=== PATIENT | male | born 1960 | race Caucasian/White ===

== ENCOUNTER → 2017-12-20 | Outpatient (CLI) | payer BC ==
[~2017-12-20] MED LIST: AMOX500C3 PO; ATV1HP PO; BISA-16 PO; GLIP10TA9 PO; HYDR-5688 PO; HYDR12.55 PO; HYDR25TA4 PO; IBUP-1428 PO; IBUPROFEN PO; INSDGI SC; LIRA18IN SQ; LISI-788 PO; LISI10TA PO; METF-384 PO; OMEP40CA41 PO; OXYC-609 PO; PRAV20TA PO; [UNRECOGNIZED DRUG - CODE] PO; [UNRECOGNIZED DRUG - OTHER] PO; dulcolax PO
[2017-12-20 15:19] LABS: ALBUMIN 4.3 gm/dl (3.4-5.0); ALT/SGPT 66 U/L (12-78); BLOOD UREA NITROGEN 25 mg/dl (7-18); CARBON DIOXIDE 28 mmol/L (21-32); CREATININE 1.31 mg/dl (0.60-1.40); GLUCOSE 95 mg/dl (70-99); POTASSIUM 4.7 mmol/L (3.5-5.1); SODIUM 134 mmol/L (136-145)
[2017-12-20 15:22] LABS: ALKALINE PHOSPHATASE 69 U/L (45-117); AST/SGOT 43 U/L (15-37); TOTAL PROTEIN 8.1 gm/dl (6.4-8.2)
[2017-12-21 06:47] LABS: HEMOGLOBIN A1C 6.3 % (4.5-5.6)
== END | disposition home or self-care (01) ==
LOC: C.LAB 12:47
PROVIDERS: ATTEND Family Medicine
DX: K29.70 Gastritis, unspecified, without bleeding (principal); E11.9 Type 2 diabetes mellitus without complications

== ENCOUNTER 2018-01-11 07:45 | Inpatient (IN) | payer BC, OTHER ==
[2017-12-20 13:22] VITALS: Ht 172.7 cm; Wt 105.0 kg
--- NOTE | 2017-12-20 14:04 | PAT Medication Instructions ---
Service Date Dec 20, 2017. Current Home Medication List Amoxicillin (Amoxil), 4 CAP PO QD Bisacodyl (Dulcolax), 1 TAB PO QD PRN for Constipation Glipizide (Glucotrol), 10 MG PO BID Hydrochlorothiazide (Hydrochlorothiazide), 1 TAB PO QPM Hydrocodone/Acetaminophen 5MG/325MG ([place] 5MG/325MG), 1 TABLET PO Q6 PRN for Pain Ibuprofen (Motrin), 800 MG PO TID PRN for Pain Insulin Glargine (Lantus), 30 UNITS SC QPM Liraglutide (Victoza), 1.2 MG SQ QAM Lisinopril/Hctz (Zestoretic 20MG/25MG), 1 TAB PO QAM Metformin Hcl (Glucophage), 1,000 MG PO BID Omeprazole (Prilosec), 40 MG PO QPM Medication Instructions For Your Scheduled Surgery -Continue as directed: Amoxicillin (Amoxil), 4 CAP PO QD -Contact your surgeon for instructions for: Ibuprofen (Motrin), 800 MG PO TID PRN for Pain - Hold the following medications the night before surgery: Hydrochlorothiazide (Hydrochlorothiazide), 1 TAB PO QPM - Hold the following medications the morning of surgery: Bisacodyl (Dulcolax), 1 TAB PO QD PRN for Constipation Glipizide (Glucotrol), 10 MG PO BID Lisinopril/Hctz (Zestoretic 20MG/25MG), 1 TAB PO QAM Metformin Hcl (Glucophage), 1,000 MG PO BID - Take the following medications the morning of surgery with a sip of water: Hydrocodone/Acetaminophen 5MG/325MG ([place] 5MG/325MG), 1 TABLET PO Q6 PRN for Pain (if needed, can be taken up to four hours before surgery) Liraglutide (Victoza), 1.2 MG SQ QAM (if blood sugar is greater than 150) - Take the following medications as scheduled the night before surgery: Bisacodyl (Dulcolax), 1 TAB PO QD PRN for Constipation (if needed) Glipizide (Glucotrol), 10 MG PO BID Hydrocodone/Acetaminophen 5MG/325MG ([place] 5MG/325MG), 1 TABLET PO Q6 PRN for Pain (if needed) Insulin Glargine (Lantus), 30 UNITS SC QPM Metformin Hcl (Glucophage), 1,000 MG PO BID Omeprazole (Prilosec), 40 MG PO QPM If you have any questions please call us at [phone] or [phone] or [phone]
[2017-12-20 14:36] LABS: BASO % 0.3 %; BASO ABS # 0.02 K/uL (0-0.2); EOS % 1.7 %; HEMATOCRIT 34.1 % (42-52); HEMOGLOBIN 11.9 g/dL (14.0-18.0); IG# 0.02 K/uL (0.00-0.02); LYMPH % 36.1 %; LYMPH ABS # 2.07 K/uL (1.2-3.4); MEAN CELL VOLUME 87.2 fL (80-100); MEAN CORPUSCULAR HEMOGLOBIN 30.4 pg (25-34); MEAN CORPUSCULAR HGB CONC 34.9 g/dl (32-36); MEAN PLATELET VOLUME 11.6 fL (7.4-10.4); MONO % 7.3 %; MONO ABS # 0.42 K/uL (0.11-0.59); NEUT % 54.3 %; NEUT ABS # 3.11 K/uL (1.4-6.5); PLATELET COUNT 162 K/uL (130-400); RED CELL DISTRIBUTION WIDTH CV 13.3 % (11.5-14.5); RED CELL DISTRIBUTION WIDTH SD 42.7 fL (36.4-46.3); WHITE BLOOD COUNT 5.74 K/uL (4.8-10.8)
--- NOTE | 2017-12-20 14:41 | DIAGNOSTIC IMAGING REPORT ---
CHEST 2 VIEWS ROUTINE CLINICAL HISTORY: Preoperative chest COMPARISON STUDY: September 30, 2013 FINDINGS: The cardiac and mediastinal contours are normal. There is no evidence of focal pulmonary consolidation. There is no evidence of failure. No pleural effusions are visualized.[ IMPRESSION: No active disease in the chest. Electronically signed by: Colin Cool M.D. 12/20/2017 2:40 PM Dictated Date/Time: 12/20/2017 2:40 PM
[~2018-01-11] VITALS: Ht 172.7 cm; Wt 105.0 kg
[2018-01-11] VITALS (9 sets, daily range): BP systolic 111–162; BP diastolic 69–80; PULSE 64–96; TEMP 36.2–37.3; O2SAT 94–100
[~2018-01-11 07:45] MED LIST changes: +ACETAMINOPHEN 500 MG TAB PO SCH; -ATV1HP PO; +CEFAZOLIN 2000MG IV PUSH 15 ML IV SCH; +CeleBREX 200 MG CAP PO SCH; +GABAPENTIN 600 MG PO SCH; -HYDR25TA4 PO; -IBUPROFEN PO; +LACTATED RINGER'S 1000ML 1,000 ML IV SCH; -LISI10TA PO; -OXYC-609 PO; -PRAV20TA PO; -[UNRECOGNIZED DRUG - CODE] PO; -[UNRECOGNIZED DRUG - OTHER] PO; -dulcolax PO
[2018-01-11] MEDS ORDERED: MIDAZOLAM HCL 1 MG/ML 2ML VIAL ONE (09:12)
[2018-01-11] MEDS ORDERED: FENTANYL CITRATE INJ 50 MCG/1 ML 2 ML VIAL ONE ×3 (09:13→11:46)
--- NOTE | 2018-01-11 09:29 | History & Physical Bridge Note ---
H&P Re-Evaluation Bridge Note: I have examined the patient, reviewed the History & Physical and in the interval since the performance of the History & Physical I have noted the following changes of clinical significance: No changes noted
--- NOTE | 2018-01-11 09:31 | History and Physical ---
History & Physical Date Jan 11, 2018. Chief Complaint Back and leg pain History of Present Illness The patient is a 57 year old male with complaints of back and leg pain Additional History Hepatic Disease: No Endocrine Disorder: No Kidney Disease: No Hypertension: Yes Heart Disease: No Bleeding Tendencies: No Infectious Diseases: No Allergies Coded Allergies: No Known Allergies (Verified , 01/11/18) Home Medications Scheduled Amoxicillin (Amoxil), 4 CAP PO QD Glipizide (Glucotrol), 10 MG PO BID Hydrochlorothiazide (Hydrochlorothiazide), 1 TAB PO QPM Insulin Glargine (Lantus), 30 UNITS SC QPM Liraglutide (Victoza), 1.2 MG SQ QAM Lisinopril/Hctz (Zestoretic 20MG/25MG), 1 TAB PO QAM Metformin Hcl (Glucophage), 1,000 MG PO BID Omeprazole (Prilosec), 40 MG PO QPM Scheduled PRN Bisacodyl (Dulcolax), 1 TAB PO QD PRN for Constipation Hydrocodone/Acetaminophen 5MG/325MG ([place] 5MG/325MG), 1 TABLET PO Q6 PRN for Pain Ibuprofen (Motrin), 800 MG PO TID PRN for Pain Physical Examination Skin: warm/dry, no rash Eyes: normal inspection, EOMI, sclerae normal ENT: normal ENT inspection, pharynx normal Head: normocephalic, atraumatic Neck: supple, no adenopathy, trachea midline Respiratory/Chest: lungs clear, normal breath sounds, no respiratory distress Cardiovascular: regular rate, rhythm, no edema, no murmur Abdomen / GI: normal bowel sounds, non tender Back: normal inspection Extremities: normal inspection, normal range of motion Neurologic/Psych: no motor/sensory deficits, alert, normal reflexes, oriented x 3 Diagnosis Lumbar spinal stenosis with neurogenic claudication Plan of Treatment Removal of hardware L4-5 L3-4 decompression and fusion
[2018-01-11] MEDS ORDERED: BUPIVACAINE/EPINEPHRINE 0.5% MPF 1:200,000 30 ML VIAL ONE (09:42)
[2018-01-11] MEDS ORDERED: BACITRACIN 50000 UNIT VIAL ONE (09:43)
[2018-01-11] MEDS ORDERED: HYDROmorphone INJ 2 MG/ML SYR/VIAL ONE ×2 (10:28→12:09)
[2018-01-11] MEDS ORDERED: ONDANSETRON INJ 2 MG/ML 2 ML VIAL ONE ×2 (10:31→12:11)
[2018-01-11] MEDS ORDERED: LIDOCAINE HCL 2% 2 ML VIAL (20MG/ML) ONE (10:31)
[2018-01-11] MEDS ORDERED: DEXAMETHASONE SOD INJ 4 MG/ML VIAL ONE (10:31)
[2018-01-11] MEDS ORDERED: PROPOFOL IV EMULSION 10 MG/ML 20 ML VIAL IV ONE (10:31)
[2018-01-11] MEDS ORDERED: ROCURONIUM BROMIDE 10 MG/ML 5 ML VIAL IV ONE (10:31)
[2018-01-11] MEDS ORDERED: EpHEDrine SULFATE INJ 50 MG/ML AMP IV PRN (11:00)
[2018-01-11] MEDS ORDERED: LABETALOL HCL IV 5 MG/ML 20ML IV PRN (11:00)
[2018-01-11] MEDS ORDERED: ATROPINE SULFATE 0.1 MG/ML 5ML SYR IV PRN (11:00)
[2018-01-11] MEDS ORDERED: MEPERIDINE HCL 25 MG/ML CARP IV PRN (11:00)
[2018-01-11] MEDS ORDERED: FENTANYL CITRATE INJ 50 MCG/1 ML 2 ML VIAL IV PRN (11:00)
[2018-01-11] MEDS ORDERED: HYDROmorphone INJ 2 MG/ML SYR/VIAL IV PRN (11:00)
[2018-01-11] MEDS ORDERED: ONDANSETRON INJ 2 MG/ML 2 ML VIAL IV PRN ×2 (11:00→12:15)
[2018-01-11] MEDS ORDERED: ALBUMIN HUMAN 5% 12.5 GM/250 ML VIAL IV ONE (11:24)
[2018-01-11] MEDS ORDERED: SODIUM CHLORIDE 0.9% 1000ML 1,000 ML IV SCH (12:02)
--- NOTE | 2018-01-11 12:02 | [facility] Operative Report ---
Operative Report Operative Date Jan 11, 2018. Pre-Operative Diagnosis Lumbar spinal stenosis with neurogenic claudication Post-Operative Diagnosis Lumbar spinal stenosis with neurogenic claudication Procedure(s) Performed 1. Removal of instrumentation L4-5. #2 exploration of fusion L4-5. #3 lumbar decompression bilateral medial facetectomies foraminotomies L3-4. #4 posterior spinal fusion L3-4 per #5 placement posterior instrumentation L3-4. #6 interbody fusion L3-4. #7 placement of titanium cage 11 x 26 mm at L3-4. #8 placement of locally harvested morselized autograft L3-4. #9 placement InFUSE collagen sponge, mass graft and posterior gutters and ostially up in the interbody space. Surgeon Dr. Gomez Batch Plant Supervisor Surgeon(s) Gurdeep Faulkner PA-C Estimated Blood Loss 450 cc Findings Severe spinal stenosis Specimens A) Removed Hardware Anesthesia Type General Description of Procedure Patient was met with preoperatively case discussed all questions addressed. After informed consent obtained patient was taken to the operative suite underwent intubation and placed in a prone position on the Reagan table on top of the Keyshawn frame. All bony prominences well-padded eyes inspected to ensure no external pressure placed upon the. This point the lumbar spine was prepped and draped in normal sterile fashion. Sharp dissection with the assistance of Bovie cautery was performed down to and exposing the lamina and transverse processes of L3 and instrumentation at L4 and L5 bilaterally. Then proceeded with hardware at L4-5 bilaterally explain the fusion mass noting it to be intact. Then performed complete laminectomy of L3 addressing severe lateral recess and foraminal stenosis. Pedicle screws were then placed in L3 and L4 bilaterally with the assistance of fluoroscopy and the purposes marco antonio placed. Through a transforaminal approach and left complete discectomy of L3-4 was performed endplates created to subcortical bleeding bone in an 11 x 26 mm titanium cage filled with ostium bone graft tapped in position. Rods were then compressed locked in final position bilaterally. The transverse processes of L3 and L4 burred to subcortical bleeding bone. Infuse collagen sponge mass graft and locally harvested morselized autograft placed in the posterior gutters. A 15 round BRIAN drain was inserted. Incision was then closed with 1 Vicryl fascia 2-0 Vicryl substantially 4 Monocryl for fashion closure Steri- Strips sterile dressings placed. Patient will continue PACU stable condition. Please note Luis Faulkner present throughout the entire procedure involved in patient positioning complex portions of the surgery and fashion closure. I attest to the content of the Intraoperative Record and any orders documented therein. Any exceptions are noted below.
[2018-01-11] MEDS ORDERED: FLOSEAL HEMOSTATIC MATRIX 10ML TOP ONE (12:05)
--- NOTE | 2018-01-11 12:08 | DIAGNOSTIC IMAGING REPORT ---
LUMBAR SPINE, INTRAOPERATIVE FLUOROSCOPY HISTORY: L4-L5 hardware removal. L3-L4 decompression and fusion.. FLUOROSCOPY TIME: 9.7 seconds.. FINDINGS: Intraoperative fluoroscopy was provided for the lumbar spine. 2 fluoroscopic spot images were obtained. Posterior decompression fusion at L3-L4 with pedicle screws and rods. The hardware appears intact. Linear metallic density at the laminectomy site is noted. Disc spaces are seen at L3-L4 and L4-L5. IMPRESSION: Fluoroscopy provided for a L3-L4 posterior decompression and fusion. Electronically signed by: William Bull M.D. 01/11/2018 12:07 PM Dictated Date/Time: 01/11/2018 12:06 PM
[2018-01-11] MEDS ORDERED: PHENYLEPHRINE 100MCG/ML 5ML SYR ONE (12:11)
[2018-01-11] MEDS ORDERED: EpHEDrine SULFATE 50MG/5ML SYR ONE (12:11)
[2018-01-11] MEDS ORDERED: NEOSTIGMINE METHYLSULFATE 1 MG/ML 10ML VIAL ONE (12:11)
[2018-01-11] MEDS ORDERED: GLYCOPYRROLATE INJ 0.2 MG/ML VIAL ONE (12:11)
[2018-01-11] MEDS ORDERED: ACETAMINOPHEN 500 MG TAB PO PRN (12:15)
[2018-01-11] MEDS ORDERED: FAMOTIDINE 20 MG TAB PO PRN (12:15)
[2018-01-11] MEDS ORDERED: LORAZEPAM INJ 0.5 MG in SYRINGE 0 ML IV PRN (12:15)
[2018-01-11] MEDS ORDERED: BISACODYL 10 MG SUPP PR PRN (12:15)
[2018-01-11] MEDS ORDERED: METOCLOPRAMIDE HCL INJ 5 MG/ML 2 ML VIAL IV PRN (12:15)
[2018-01-11] MEDS ORDERED: ACETAMINOPHEN IV 100 ML IV PRN (12:15)
[2018-01-11] MEDS ORDERED: MAGNESIUM HYDROXIDE SUSP 30 ML UDC PO PRN (12:15)
[2018-01-11] MEDS ORDERED: LORAZEPAM 0.5 MG TAB PO PRN (12:15)
[2018-01-11] MEDS ORDERED: DO NOT ADMINISTER PNEUMOCOCCAL VACCINE PRN (12:15)
[2018-01-11] MEDS ORDERED: hydrOXYzine HCL 25 MG TAB PO PRN (12:15)
[2018-01-11] MEDS ORDERED: NALOXONE HCL 0.4 MG/1 ML VIAL/CARP IV PRN ×2 (12:15)
[2018-01-11] MEDS ORDERED: ALUMINUM/MAGNESIUM SUSP 30 ML UDC PO PRN (12:15)
[2018-01-11] MEDS ORDERED: SOD PHOSPHATE/SOD BIPHOSPHATE ENEMA 132 ML BTL PR PRN (12:15)
[2018-01-11] MEDS ORDERED: DO NOT ADMINISTER FLU VACCINE PRN (12:15)
[2018-01-11] MEDS ORDERED: HYDROmorphone HCL 0.5MG/ML 50 ML CASSETTE IV PRN (12:15)
[2018-01-11] MEDS ORDERED: PROMETHAZINE HCL INJ 12.5 MG in SODIUM CHLORIDE 0.9% 50ML 50 ML IV PRN (12:15)
[2018-01-11] MEDS ORDERED: HYDROmorphone HCL 0.5MG/ML 50 ML CASSETTE ONE (12:27)
--- NOTE | 2018-01-11 13:09 | Anesthesiology Progress Note ---
Anesthesia Post Op Note Date & Time Jan 11, 2018 at 13:08 Vital Signs Pain Intensity: 5.0 Vital Signs Past 12 Hours Date Time Temp Pulse Resp B/P (MAP) Pulse Ox O2 Delivery O2 Flow Rate FiO2 01/11/18 12:50 77 21 147/81 100 Nasal Cannula 2 01/11/18 12:40 80 24 143/81 97 Oxymask 10 01/11/18 12:30 78 13 153/76 100 Oxymask 10 01/11/18 12:22 36.5 84 12 157/80 100 Oxymask 10 01/11/18 08:10 37.3 81 20 153/76 98 Room Air Notes Mental Status: alert / awake / arousable, participated in evaluation Pt Amnestic to Procedure: Yes Nausea / Vomiting: adequately controlled Pain: adequately controlled Airway Patency, RR, SpO2: stable & adequate BP & HR: stable & adequate Hydration State: stable & adequate Anesthetic Complications: no major complications apparent
[2018-01-11] MEDS ORDERED: LISINOPRIL/HCTZ 20/25MG TAB PO STA (14:24)
--- NOTE | 2018-01-11 15:34 | Medical Consult ---
Consultation Date of Consultation: Jan 11, 2018. Attending Physician: Yair Gomez D.O. Reason for Consultation: Medical management History of Present Illness This is a 57-year-old male with PMH of HTN, DM type II, obesity with BMI= 35.2, hx testicular cancer in 1999 s/p chemotherapy, chewing tobacco and smoking tobacco hx x ~20 years each, and hx of alcohol abuse over 20 years ago, GERD who presents for an elective lumbar decompression fusion spinal surgery by Dr. Gomez on 01/11/18. The patient notes he is doing well other than feeling fatigued. He also notes that the chapman catheter is bothering him slightly but denies cramping or spasms. He has feeling into both lower extremities and denies numbness or paresthesias. He is able to wiggle his toes and move his feet. Pt has not yet passed gas since surgery. Pt lives at home with his , and plans on outpatient pt/ot after discharge. Past Medical/Surgical History Medical Problems: (1) Benign essential HTN (2) GERD (gastroesophageal reflux disease) (3) History of ETOH abuse (4) HLD (hyperlipidemia) (5) Hx of testicular cancer (6) Lumbar stenosis with neurogenic claudication Social History Problems: (1) Past history of chewing tobacco use (2) Stopped smoking with greater than 20 pack year history Family History FHx: heart disease Social History Smoking Status: Former Smoker Smokeless Tobacco Use: Yes Alcohol Use: none Drug Use: none Marital Status: Housing Status: lives with family Allergies Coded Allergies: No Known Allergies (Verified , 01/11/18) Current Inpatient Medications Current Inpatient Medications Medications (Trade) Dose Ordered Sig/[facility] Route Start Time Stop Time Status Last Admin Dose Admin Lactated Ringer's 1,000 ml @ 15 mls/hr Q24H IV 01/11/18 06:00 01/12/18 05:59 01/11/18 08:30 15 MLS/HR Cefazolin Sodium 15 ml @ 3.75 mls/ min PREOP IV 01/11/18 06:00 01/11/18 18:00 01/11/18 10:02 3.75 MLS/MIN Acetaminophen (Tylenol Tab) 1,000 mg PREOP PO 01/11/18 06:00 01/11/18 18:00 01/11/18 08:31 1,000 MG Celecoxib (CeleBREX CAP) 200 mg PREOP PO 01/11/18 06:00 01/11/18 18:00 01/11/18 08:30 200 MG Gabapentin (Neurontin Cap) 600 mg PREOP PO 01/11/18 06:00 01/11/18 18:00 01/11/18 08:31 600 MG Fentanyl Citrate (Fentanyl Inj) 50 mcg Q5M PRN IV 01/11/18 11:00 01/11/18 16:00 01/11/18 13:01 25 MCG Hydromorphone HCl (Dilaudid Inj) 0.5 mg Q5M PRN IV 01/11/18 11:00 01/11/18 16:00 Meperidine HCl (Demerol Inj) 25 mg Q5M PRN IV 01/11/18 11:00 01/11/18 16:00 Ondansetron HCl (Zofran Inj) 4 mg ONE PRN IV 01/11/18 11:00 01/11/18 16:00 01/11/18 13:29 4 MG Labetalol HCl (Normodyne IV) 5 mg Q5M PRN IV 01/11/18 11:00 01/11/18 16:00 Ephedrine Sulfate (EpHEDrine SULFATE INJ) 5 mg Q5M PRN IV 01/11/18 11:00 01/11/18 16:00 Atropine Sulfate (Atropine Sulfate 0.1mg/ml Inj) 0.5 mg Q1M PRN IV 01/11/18 11:00 01/11/18 16:00 Promethazine HCl 12.5 mg/Sodium Chloride 50.5 ml @ 202 mls/hr Q6H PRN IV 01/11/18 12:15 02/10/18 12:14 Ondansetron HCl (Zofran Inj) 4 mg Q6H PRN IV 01/11/18 12:15 02/10/18 12:14 Metoclopramide HCl (Reglan Inj) 10 mg Q6H PRN IV 01/11/18 12:15 02/10/18 12:14 Lorazepam (Ativan Tab) 0.5 mg Q8H PRN PO 01/11/18 12:15 02/10/18 12:14 Lorazepam 0.5 mg/ Syringe 0.25 ml @ 1 mls/min Q8H PRN IV 01/11/18 12:15 02/10/18 12:14 Pneumococcal Polysaccharide Vaccine 1 ea PRN PRN N/A 01/11/18 12:15 02/10/18 12:14 Influenza Virus Vacc Triv Types A&B 1 ea PRN PRN N/A 01/11/18 12:15 02/10/18 12:14 Polyethylene (Miralax Powder Packet) 17 gm Q6 PO 01/13/18 06:00 02/12/18 05:59 Bisacodyl (Dulcolax Supp) 10 mg DAILY PRN MT 01/11/18 12:15 02/10/18 12:14 Magnesium Hydroxide (Milk Of Magnesia Susp) 30 ml DAILY PRN PO 01/11/18 12:15 02/10/18 12:14 Hydromorphone HCl (Dilaudid Inj) 0.5-1mg prn moder... Q3H PRN IV 01/12/18 06:00 01/26/18 05:59 Oxycodone HCl (Roxicodone Immediate Rel Tab) 5-10mg prn moderate to sev... Q4H PRN PO 01/12/18 06:00 01/26/18 05:59 Cefazolin Sodium 2000 mg/Syringe 15 ml @ 100 mls/hr Q8H IV 01/11/18 18:00 01/12/18 02:08 Sodium Chloride 1,000 ml @ 150 mls/hr Q6H40M IV 01/11/18 14:30 02/10/18 14:29 Acetaminophen (Tylenol Tab) 1,000 mg Q8H PRN PO 01/11/18 12:15 02/10/18 12:14 Acetaminophen 100 ml @ 400 mls/hr Q8H PRN IV 01/11/18 12:15 02/10/18 12:14 Naloxone HCl (Narcan Inj) 0.1 mg Q5M PRN IV 01/11/18 12:15 02/10/18 12:14 Senna/Docusate Sodium (Senokot S Tab) 2 tab HS PO 01/11/18 21:00 02/10/18 20:59 Sodium Biphosphate/ Sodium Phosphate (Fleet Enema) 132 ml ONE PRN MT 01/11/18 12:15 02/10/18 12:14 Hydroxyzine HCl (Vistaril Tab) 25 mg Q8H PRN PO 01/11/18 12:15 02/10/18 12:14 Al Hydroxide/Mg Hydroxide (Maalox Susp) 30 ml Q6H PRN PO 01/11/18 12:15 02/10/18 12:14 Famotidine (Pepcid Tab) 20 mg Q12 PRN PO 01/11/18 12:15 02/10/18 12:14 Diphenhydramine HCl (Benadryl Cap) 25 mg Q6H PRN PO 01/11/18 12:15 02/10/18 12:14 Miscellaneous Information (Discontinue WEB PRODUCER) 1 ea TODAY@0600 ONCE N/A 01/12/18 06:00 01/12/18 06:01 Naloxone HCl (Narcan Inj) 0.1 mg Q5M PRN IV 01/11/18 12:15 01/12/18 06:00 Hydromorphone HCl (Dilaudid Merchandise Shopper) 25 mg PRN PRN IV 01/11/18 12:15 01/12/18 06:00 01/11/18 14:47 25 MG Sodium Chloride 1,000 ml @ 15 mls/hr Q24H IV 01/11/18 12:02 01/12/18 06:00 Glipizide (Glucotrol Tab) 10 mg AC@0800,1715 PO 01/11/18 17:15 02/10/18 17:14 HCTZ/Lisinopril (Prinzide 20-25MG Tab) 1 tab QAM PO 01/12/18 09:00 02/11/18 08:59 Hydrochlorothiazide (Hydrochlorothiazide Tab) 12.5 mg QPM PO 01/11/18 21:00 02/10/18 20:59 Pantoprazole Sodium (Protonix Tab) 40 mg QPM PO 01/11/18 21:00 02/10/18 20:59 Review of Systems Constitutional: No fever, sweats or chills, +fatigue Eyes: No diplopia, no worsening or blurred vision ENT: normal hearing, no trouble swallowing Respiratory: No cough, sputum, dyspnea at rest or on exertion Cardiovascular: No chest pain, tightness or palpitations Abdomen: No pain, nausea, vomiting, diarrhea or constipation Musculoskeletal: No joint pain, calf pain, swelling Neurologic: No weakness, numbness/tingling, or balance problems Psychiatric: No anxiety or depression Skin: No rash or itch Physical Exam Date Time Temp Pulse Resp B/P (MAP) Pulse Ox O2 Delivery O2 Flow Rate FiO2 01/11/18 15:00 69 16 118/70 (86) 100 01/11/18 14:19 72 16 130/78 (95) 95 3.0 01/11/18 13:50 100 Nasal Cannula 4.0 01/11/18 13:50 100 Nasal Cannula 4.0 01/11/18 13:50 36.4 73 16 136/73 (94) 100 Nasal Cannula 4.0 01/11/18 13:30 36.1 78 20 140/70 96 Nasal Cannula 2 01/11/18 13:15 36.1 72 15 146/80 100 Nasal Cannula 2 01/11/18 13:10 72 14 142/71 98 Nasal Cannula 2 01/11/18 13:00 65 12 132/71 91 Nasal Cannula 2 01/11/18 12:50 77 21 147/81 100 Nasal Cannula 2 01/11/18 12:40 80 24 143/81 97 Oxymask 10 01/11/18 12:30 78 13 153/76 100 Oxymask 10 01/11/18 12:22 36.5 84 12 157/80 100 Oxymask 10 01/11/18 08:10 37.3 81 20 153/76 98 Room Air General: awake, alert, no apparent distress Head: Normocephalic, atraumatic ENT: PERRL, EOMI, no pharyngeal exudate, mucous membranes moist Chest: Clear to auscultation, on room air, no adventitious breath sounds Cardiac: Regular rate and rhythm, no murmur, no JVD, normal peripheral pulses, good capillary refill Abdominal: NABS x 4 quadrants, soft, nontender to palpation, no rebound, guarding or tenderness Back: dressing c/d/i, Hemovac drain in place Extremities: Normal inspection, no peripheral edema or erythema, calfs nontender to palpation Psych: Normal mood and affect Neuro: AAO x 3, strength intact bilaterally and related 4/5 BLE and 5/5 and BUE , no motor deficits, speech is clear, no peripheral sensory deficits Laboratory Results Last 24 Hours Test 01/11/18 08:06 01/11/18 12:32 Bedside Glucose 151 mg/dl 127 mg/dl Assessment & Plan This is a 57-year-old male with PMH of HTN, DM type II, obesity with BMI= 35.2, hx testicular cancer in 1999 s/p chemotherapy, chewing tobacco and smoking tobacco hx x ~20 years each, and hx of alcohol abuse over 20 years ago, GERD who presents for an elective lumbar decompression fusion spinal surgery by Dr. Gomez on 01/11/18. The patient notes he is doing well other than feeling fatigued. He also notes that the chapman catheter is bothering him slightly but denies cramping or spasms. He has feeling into both lower extremities and denies numbness or paresthesias. He is able to wiggle his toes and move his feet. Pt has not yet passed gas since surgery. Pt lives at home with his , and plans on outpatient pt/ot after discharge. 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 DM type II - Hemoglobin A1c equal to 6.3 on 12/22/17 -continue with ISS with Accu-Cheks achs while admitted - Uses victoza inj at home, resume upon discharge Hx testicular cancer and chemotherapy 1999 - Stable GERD - Cont omeprazole Hx smoking tobacco use/chewing tobacco Hx etoh abuse - Quit ~ 20 years ago DVT prophylaxis: No anticoagulation with surgical procedure, teds, SCDs, early ambulation CODE STATUS full code Disposition: Patient from home, PT/OT I personally interviewed and examined the patient. I agree with history of present illness and physical exam mentioned above, I also performed my own history taking and examination. Past medical history and review of system has been obtained by myself I reviewed all pertinent labs and studies Reviewed current medications I discussed and formulated of the assessment and plan mentioned above. Please refer to the Summary mentioned below. 57-year-old man with past medical history of diabetes mellitus, obesity, testicular cancer 18 years ago status post chemotherapy, hypertension and tobacco abuse, presented to the hospital for elective lumbar decompression fusion, tolerated the procedure well, no complication, DVT prophylaxis as per primary team continue home medications. General Appearance: not in acute distress Eyes: normal Sclerae, extraocular muscle intact ENT: hearing grossly normal Neck: supple Respiratory/Chest: normal air entry bilateral ,no respiratory distress, no accessory muscle use Cardiovascular: regular rate, rhythm, no murmur Abdomen: non tender, soft, no masses Extremities: no edema musculoskeletal: no significant swelling or inflammation in any joint Neurologic/Psychiatric: Awake alert oriented times place and person moves all extremities sensation intact cranial nerves II-12 appear to be intact Skin: normal color, warm/dry, no rash Frida Chairez MD, [facility]
[2018-01-11] MEDS: SODIUM CHLORIDE 0.9% 1000ML 1,000 ML IV SCH ×2 (17:16→23:17)
[2018-01-11] MEDS: CEFAZOLIN IV 2,000 MG in SYRINGE 0 ML IV SCH (17:59)
[2018-01-11] MEDS ORDERED: COUGH DROP (SUGAR FREE) LOZ 24 LOZ/1 BOX LOZ PRN (20:00)
[2018-01-11] MEDS ORDERED: NURSING DECISION MEDICATION ORDER SCH (20:00)
[2018-01-11] MEDS: PANTOprazole SOD 40 MG TAB PO SCH (20:33)
[2018-01-11] MEDS: DOCUSATE SODIUM/SENNA 50/8.6MG TAB PO SCH (20:34)
[2018-01-11] MEDS: HYDROCHLOROTHIAZIDE 25 MG TAB PO SCH (20:34)
[2018-01-12] VITALS (8 sets, daily range): BP systolic 98–148; BP diastolic 57–78; PULSE 75–90; TEMP 36.5–37.2; O2SAT 93–99
[2018-01-12] MEDS: CEFAZOLIN IV 2,000 MG in SYRINGE 0 ML IV SCH (02:18)
[2018-01-12] MEDS: SODIUM CHLORIDE 0.9% 1000ML 1,000 ML IV SCH (06:00)
[2018-01-12] MEDS ORDERED: DC PCA ONE (06:00)
[2018-01-12] MEDS ORDERED: HYDROmorphone INJ 0.5 MG/0.5 ML SYR IV PRN (06:00)
[2018-01-12 06:27] LABS: EOS % 0.3 %; EOS ABS # 0.02 K/uL (0-0.5); HEMATOCRIT 25.8 % (42-52); IG# 0.01 K/uL (0.00-0.02); LYMPH % 18.2 %; LYMPH ABS # 1.14 K/uL (1.2-3.4); MEAN CELL VOLUME 87.2 fL (80-100); MEAN CORPUSCULAR HEMOGLOBIN 30.4 pg (25-34); MEAN CORPUSCULAR HGB CONC 34.9 g/dl (32-36); MEAN PLATELET VOLUME 11.1 fL (7.4-10.4); MONO % 9.4 %; MONO ABS # 0.59 K/uL (0.11-0.59); NEUT % 71.9 %; PLATELET COUNT 111 K/uL (130-400); RED CELL DISTRIBUTION WIDTH CV 13.1 % (11.5-14.5); RED CELL DISTRIBUTION WIDTH SD 41.9 fL (36.4-46.3); WHITE BLOOD COUNT 6.26 K/uL (4.8-10.8)
[2018-01-12] MEDS ORDERED: NURSING DECISION MEDICATION ORDER SCH (06:30)
[2018-01-12 06:54] LABS: CALCIUM 8.3 mg/dl (8.5-10.1); CREATININE 1.34 mg/dl (0.60-1.40); POTASSIUM 4.1 mmol/L (3.5-5.1)
--- NOTE | 2018-01-12 07:53 | Orthopedic Progress Note ---
Orthopedic Progress Note Date of Service Jan 12, 2018. Subjective Post OP Day: 1 Reports: feeling well Additional Notes: Mr. Liao is doing well. He has no reported radicular leg pain. Back pain is controlled. BRIAN drain output last shift is 10 cc. He did have saturation of his dressing last evening that was reinforced. There is a question of a clot within the drain. H&H are 9.0 25.8 respectively this morning. Objective calves soft nontender, N/V intact, A&O x3, toes mobile He is able to lean forward for me to inspect his dressing. It is clean dry and intact. Lower extremities are neurovascular intact parentally. Calves are soft and nontender bilaterally. He is in no obvious distress. Date Time Temp Pulse Resp B/P (MAP) Pulse Ox O2 Delivery O2 Flow Rate FiO2 01/12/18 07:45 36.5 77 17 144/76 (98) 97 01/12/18 02:55 36.8 75 16 116/69 (85) 98 Room Air 01/12/18 00:00 Room Air 01/11/18 22:50 36.6 96 16 111/69 (83) 98 Room Air 01/11/18 19:45 36.4 92 17 131/75 (93) 98 Room Air 01/11/18 16:54 36.2 64 16 152/72 (98) 94 Room Air 01/11/18 15:59 36.2 78 16 162/80 (107) 100 Nasal Cannula 3.0 01/11/18 15:09 100 Nasal Cannula 4.0 01/11/18 15:00 69 16 118/70 (86) 100 01/11/18 14:19 72 16 130/78 (95) 95 3.0 01/11/18 13:50 100 Nasal Cannula 4.0 01/11/18 13:50 100 Nasal Cannula 4.0 01/11/18 13:50 36.4 73 16 136/73 (94) 100 Nasal Cannula 4.0 01/11/18 13:30 36.1 78 20 140/70 96 Nasal Cannula 2 01/11/18 13:15 36.1 72 15 146/80 100 Nasal Cannula 2 01/11/18 13:10 72 14 142/71 98 Nasal Cannula 2 01/11/18 13:00 65 12 132/71 91 Nasal Cannula 2 01/11/18 12:50 77 21 147/81 100 Nasal Cannula 2 01/11/18 12:40 80 24 143/81 97 Oxymask 10 01/11/18 12:30 78 13 153/76 100 Oxymask 10 01/11/18 12:22 36.5 84 12 157/80 100 Oxymask 10 01/11/18 08:10 37.3 81 20 153/76 98 Room Air Laboratory Results 24 Hours: Test 01/12/18 05:46 White Blood Count 6.26 K/uL Red Blood Count 2.96 M/uL Hemoglobin 9.0 g/dL Hematocrit 25.8 % Mean Corpuscular Volume 87.2 fL Mean Corpuscular Hemoglobin 30.4 pg Mean Corpuscular Hemoglobin Concent 34.9 g/dl Platelet Count 111 K/uL Mean Platelet Volume 11.1 fL Neutrophils (%) (Auto) 71.9 % Lymphocytes (%) (Auto) 18.2 % Monocytes (%) (Auto) 9.4 % Eosinophils (%) (Auto) 0.3 % Basophils (%) (Auto) 0.0 % Neutrophils # (Auto) 4.50 K/uL Lymphocytes # (Auto) 1.14 K/uL Monocytes # (Auto) 0.59 K/uL Eosinophils # (Auto) 0.02 K/uL Basophils # (Auto) 0.00 K/uL Assessment & Plan Assessment: Postoperative day 1 lumbar decompression with instrumented fusion Plan: Overall he is doing well. We will start physical therapy today. Recheck his H& H tomorrow. Continue with pain control. Maintain BRIAN drain. Anticipate discharge home within the next 24-48 hours. DVT prophylaxis in the form of teds and SCDs. Inhouse Planning Pain Management: Oxy IR DVT Prophylaxis: TEDs, SCDs Discharge Planning Discharge Planning: home DVT Prophylaxis: TEDs
[2018-01-12] MEDS: OXYCODONE HCL IR 5 MG TAB (IMMEDIATE RELEASE) PO PRN ×4 (08:00→22:24)
[2018-01-12] MEDS: LISINOPRIL/HCTZ 20/25MG TAB PO SCH (08:00)
[2018-01-12] MEDS ORDERED: POLYETHYLENE (MIRALAX) 17 GM PACK PO PRN (08:15)
--- NOTE | 2018-01-12 12:43 | Hospitalist Progress Note ---
Hospitalist Progress Note Date of Service Jan 12, 2018. (Sil Felder ., PAJayeC) Subjective Pt evaluation today including: conversation w/ patient, physical exam, lab review, review of inpatient medication list Voiding: chapman catheter in place Patient sitting in bedside chair. Feeling well. Pain is well controlled. Eating and drinking OK. No flatus/BM postop. Bowel regimen ordered. Ambulating this AM w/out significant difficulty. Chronic numbness/tingling to BLEs. At baseline. No weakness. Patient denies any fever, chills, sweats, lightheadedness, dizziness, vision changes, CP, palpitations, edema, SOB, wheezing, cough, abdominal pain, nausea, vomiting, diarrhea, urinary symptoms, melena, numbness/tingling, weakness, anxiety/depression, active bleeding, or new skin discoloration/changes. (Sil Felder ., MARCE-C) Medications Current Inpatient Medications Medications (Trade) Dose Ordered Sig/[facility] Route Start Time Stop Time Status Last Admin Dose Admin Promethazine HCl 12.5 mg/Sodium Chloride 50.5 ml @ 202 mls/hr Q6H PRN IV 01/11/18 12:15 02/10/18 12:14 Ondansetron HCl (Zofran Inj) 4 mg Q6H PRN IV 01/11/18 12:15 02/10/18 12:14 Metoclopramide HCl (Reglan Inj) 10 mg Q6H PRN IV 01/11/18 12:15 02/10/18 12:14 01/11/18 17:14 10 MG Lorazepam (Ativan Tab) 0.5 mg Q8H PRN PO 01/11/18 12:15 02/10/18 12:14 Lorazepam 0.5 mg/ Syringe 0.25 ml @ 1 mls/min Q8H PRN IV 01/11/18 12:15 02/10/18 12:14 Pneumococcal Polysaccharide Vaccine 1 ea PRN PRN N/A 01/11/18 12:15 02/10/18 12:14 Influenza Virus Vacc Triv Types A&B 1 ea PRN PRN N/A 01/11/18 12:15 02/10/18 12:14 Polyethylene (Miralax Powder Packet) 17 gm Q6 PO 01/13/18 06:00 02/12/18 05:59 Bisacodyl (Dulcolax Supp) 10 mg DAILY PRN [place] 01/11/18 12:15 02/10/18 12:14 Magnesium Hydroxide (Milk Of Magnesia Susp) 30 ml DAILY PRN PO 01/11/18 12:15 02/10/18 12:14 Hydromorphone HCl (Dilaudid Inj) 0.5-1mg prn moder... Q3H PRN IV 01/12/18 06:00 01/26/18 05:59 Oxycodone HCl (Roxicodone Immediate Rel Tab) 5-10mg prn moderate to sev... Q4H PRN PO 01/12/18 06:00 01/26/18 05:59 01/12/18 12:01 10 MG Acetaminophen (Tylenol Tab) 1,000 mg Q8H PRN PO 01/11/18 12:15 02/10/18 12:14 Acetaminophen 100 ml @ 400 mls/hr Q8H PRN IV 01/11/18 12:15 02/10/18 12:14 Naloxone HCl (Narcan Inj) 0.1 mg Q5M PRN IV 01/11/18 12:15 02/10/18 12:14 Senna/Docusate Sodium (Senokot S Tab) 2 tab HS PO 01/11/18 21:00 02/10/18 20:59 01/11/18 20:34 2 TAB Sodium Biphosphate/ Sodium Phosphate (Fleet Enema) 132 ml ONE PRN FL 01/11/18 12:15 02/10/18 12:14 Hydroxyzine HCl (Vistaril Tab) 25 mg Q8H PRN PO 01/11/18 12:15 02/10/18 12:14 Al Hydroxide/Mg Hydroxide (Maalox Susp) 30 ml Q6H PRN PO 01/11/18 12:15 02/10/18 12:14 Famotidine (Pepcid Tab) 20 mg Q12 PRN PO 01/11/18 12:15 02/10/18 12:14 Diphenhydramine HCl (Benadryl Cap) 25 mg Q6H PRN PO 01/11/18 12:15 02/10/18 12:14 Glipizide (Glucotrol Tab) 10 mg AC@0800,1715 PO 01/11/18 17:15 02/10/18 17:14 01/12/18 08:00 10 MG HCTZ/Lisinopril (Prinzide 20-25MG Tab) 1 tab QAM PO 01/12/18 09:00 02/11/18 08:59 01/12/18 08:00 1 TAB Hydrochlorothiazide (Hydrochlorothiazide Tab) 12.5 mg QPM PO 01/11/18 21:00 02/10/18 20:59 01/11/18 20:34 12.5 MG Pantoprazole Sodium (Protonix Tab) 40 mg QPM PO 01/11/18 21:00 02/10/18 20:59 01/11/18 20:33 40 MG Menthol ([place]) 1 [place] Q1H PRN [place] 01/11/18 20:00 02/10/18 19:59 01/11/18 20:10 1 [place] Polyethylene (Miralax Powder Packet) 17 gm BID PRN PO 01/12/18 08:15 02/11/18 08:14 (Sil Felder, ROSE MARYC) Objective Vital Signs Date Time Temp Pulse Resp B/P (MAP) Pulse Ox O2 Delivery O2 Flow Rate FiO2 01/12/18 12:17 88 98 01/12/18 11:19 36.8 87 16 124/71 (88) 99 Room Air 01/12/18 07:45 36.5 77 17 144/76 (98) 97 01/12/18 07:20 Room Air 01/12/18 02:55 36.8 75 16 116/69 (85) 98 Room Air 01/12/18 00:00 Room Air 01/11/18 22:50 36.6 96 16 111/69 (83) 98 Room Air 01/11/18 19:45 36.4 92 17 131/75 (93) 98 Room Air 01/11/18 16:54 36.2 64 16 152/72 (98) 94 Room Air 01/11/18 15:59 36.2 78 16 162/80 (107) 100 Nasal Cannula 3.0 01/11/18 15:09 100 Nasal Cannula 4.0 01/11/18 15:00 69 16 118/70 (86) 100 01/11/18 14:19 72 16 130/78 (95) 95 3.0 01/11/18 13:50 100 Nasal Cannula 4.0 01/11/18 13:50 100 Nasal Cannula 4.0 01/11/18 13:50 36.4 73 16 136/73 (94) 100 Nasal Cannula 4.0 01/11/18 13:30 36.1 78 20 140/70 96 Nasal Cannula 2 01/11/18 13:15 36.1 72 15 146/80 100 Nasal Cannula 2 01/11/18 13:10 72 14 142/71 98 Nasal Cannula 2 01/11/18 13:00 65 12 132/71 91 Nasal Cannula 2 01/11/18 12:50 77 21 147/81 100 Nasal Cannula 2 01/11/18 12:40 80 24 143/81 97 Oxymask 10 01/11/18 12:30 78 13 153/76 100 Oxymask 10 (Sil Felder, PA-C) Physical Exam General Appearance: no apparent distress Eyes: normal inspection, PERRL ENT: hearing grossly normal Neck: supple Respiratory/Chest: lungs clear, normal breath sounds, no respiratory distress, no accessory muscle use Cardiovascular: regular rate, rhythm Abdomen: normal bowel sounds, non tender, soft Extremities: no calf tenderness, + pertinent finding (TEDs on; back brace on; BRIAN drain w/ minimal bloody output ) Neurologic/Psychiatric: alert, normal mood/affect, oriented x 3, + sensory deficit (BLEs- chronic) Skin: normal color, warm/dry, no rash (Sil Felder ., PA-C) Laboratory Results Last 24 Hours Test 01/11/18 12:32 01/11/18 17:24 01/11/18 20:34 01/12/18 05:46 Bedside Glucose 127 mg/dl 204 mg/dl 281 mg/dl White Blood Count 6.26 K/uL Red Blood Count 2.96 M/uL Hemoglobin 9.0 g/dL Hematocrit 25.8 % Mean Corpuscular Volume 87.2 fL Mean Corpuscular Hemoglobin 30.4 pg Mean Corpuscular Hemoglobin Concent 34.9 g/dl Platelet Count 111 K/uL Mean Platelet Volume 11.1 fL Neutrophils (%) (Auto) 71.9 % Lymphocytes (%) (Auto) 18.2 % Monocytes (%) (Auto) 9.4 % Eosinophils (%) (Auto) 0.3 % Basophils (%) (Auto) 0.0 % Neutrophils # (Auto) 4.50 K/uL Lymphocytes # (Auto) 1.14 K/uL Monocytes # (Auto) 0.59 K/uL Eosinophils # (Auto) 0.02 K/uL Basophils # (Auto) 0.00 K/uL RDW Standard Deviation 41.9 fL RDW Coefficient of Variation 13.1 % Immature Granulocyte % (Auto) 0.2 % Immature Granulocyte # (Auto) 0.01 K/uL Sodium Level 137 mmol/L Potassium Level 4.1 mmol/L Chloride Level 104 mmol/L Carbon Dioxide Level 29 mmol/L Anion Gap 4.0 mmol/L Blood Urea Nitrogen 20 mg/dl Creatinine 1.34 mg/dl Est Creatinine Clear Calc Drug Dose 71.4 ml/min Estimated GFR () 67.7 Estimated GFR (Non- 58.4 BUN/Creatinine Ratio 14.9 Random Glucose 141 mg/dl Calcium Level 8.3 mg/dl Test 01/12/18 08:17 01/12/18 12:09 Bedside Glucose 146 mg/dl 197 mg/dl (Sil Felder, PAJayeC) Assessment and Plan This is a 57-year-old male with PMH of HTN, DM type II, obesity with BMI= 35.2, hx testicular cancer in 1999 s/p chemotherapy, chewing tobacco and smoking tobacco hx x ~20 years each, and hx of alcohol abuse over 20 years ago, GERD who presents for an elective lumbar decompression fusion spinal surgery by Dr. Gomez on 01/11/18. s/p lumbar decompression fusion by Dr. Gomez on 01/11: - Surgical management, pain management, PT/OT, and DVT prophylaxis as per primary team - Bowel regimen ordered - Encourage incentive spirometer - Postop CBC and PRP- STABLE Acute blood loss anemia in postop setting- STABLE: - Follow H&H- hgb 9.0 today - Transfuse PRN- would transfuse if hgb < 8.0 HTN- STABLE: Continue HCTZ/Lisinopril 20/25 QAM and HCTZ 12.5 mg QPM T2DM- hgbA1c 6.3% in 12/2017: - Hold Metformin 1000 mg BID and Victoza SQ daily while inpatient- resume at discharge - Continue Glipizide 10 mg BID and Lantus 30 u daily - BSG ACHS and ISS h/o testicular cancer and chemotherapy 1999- noted GERD: Protonix daily- resume Prilosec at discharge DVT prophylaxis: As per surgical team Code status: LEVEL I, FULL Disposition: As per primary team- medical service will sign-off at this time, please call w/ any questions/concerns (Sil Felder, PA-C) Supervising Note Dr. Villasenor I performed a history and physical examination on the patient. I reviewed above note and agree with it. I discussed plan with APC and patient. During my face to face encounter with the patient, I answered all of the patient's questions. Stable vitals. No acute medical issues at this time. Will sign off case. Please call if any issues arrive or if you have any questions (Kong Villasenor M.D.)
[2018-01-12] MEDS: DOCUSATE SODIUM/SENNA 50/8.6MG TAB PO SCH (18:18)
[2018-01-12] MEDS: INSULIN ASPART 100 UNITS/ML 3 ML PEN SC SCH ×2 (18:21→20:57)
[2018-01-12] MEDS: PANTOprazole SOD 40 MG TAB PO SCH (20:55)
[2018-01-12] MEDS: HYDROCHLOROTHIAZIDE 25 MG TAB PO SCH (20:56)
[2018-01-12] MEDS: INSULIN GLARGINE SOLOSTAR 100 UNITS/ML 3 ML PEN SC SCH (20:58)
[2018-01-13] MEDS: OXYCODONE HCL IR 5 MG TAB (IMMEDIATE RELEASE) PO PRN ×5 (04:32→20:51)
[2018-01-13 05:59] LABS: HEMATOCRIT 25.6 % (42-52); HEMOGLOBIN 8.7 g/dL (14.0-18.0)
[2018-01-13] MEDS: POLYETHYLENE (MIRALAX) 17 GM PACK PO SCH ×2 (06:02→12:48)
[2018-01-13 06:33] VITALS: BP 133/73; PULSE 85; TEMP 37.4; O2SAT 95
[2018-01-13] MEDS: LISINOPRIL/HCTZ 20/25MG TAB PO SCH (07:47)
[2018-01-13] MEDS: INSULIN ASPART 100 UNITS/ML 3 ML PEN SC SCH ×4 (07:54→20:56)
--- NOTE | 2018-01-13 08:24 | Orthopedic Progress Note ---
Orthopedic Progress Note Date of Service Jan 13, 2018. Subjective Post OP Day: 2 Reports: feeling well Additional Notes: Brant has complaints of lower back pain only. No radicular pain. H&H this morning are 8.7 and 25.6 respectively. He is asymptomatic and has no cardiac history. Ambulating in physical therapy roughly 500 feet. He is passing flatus but no bowel movement. No other complaints. His BRIAN drain was removed yesterday as it was not functioning. Patient does report improvement of pain once BRIAN drain has been discontinued Objective calves soft nontender, N/V intact, A&O x3, toes mobile Brant is sitting in a chair eating breakfast this morning. No obvious distress. Calves are soft nontender bilaterally. Neurovascular intact bilaterally. Date Time Temp Pulse Resp B/P (MAP) Pulse Ox O2 Delivery O2 Flow Rate FiO2 01/13/18 06:33 37.4 85 17 133/73 (93) 95 Room Air 01/12/18 23:45 Room Air 01/12/18 22:59 37.0 89 16 98/57 (71) 93 Room Air 01/12/18 20:53 90 117/67 (84) 01/12/18 19:50 95 Room Air 01/12/18 16:00 Room Air 01/12/18 15:08 37.2 89 16 103/63 (76) 95 Room Air 01/12/18 12:17 88 98 01/12/18 11:19 36.8 87 16 124/71 (88) 99 Room Air Laboratory Results 24 Hours: Test 01/13/18 04:56 Hematocrit 25.6 % Hemoglobin 8.7 g/dL Assessment & Plan Assessment: Postoperative day 2 lumbar decompression with instrumented fusion Plan: Overall he is doing well. We will continue physical therapy today. Continue with pain control. Anticipate discharge home tomorrow. DVT prophylaxis in the form of teds and SCDs. Inhouse Planning Pain Management: Oxy IR DVT Prophylaxis: TEDs, SCDs Discharge Planning Discharge Planning: home DVT Prophylaxis: TEDs
[2018-01-13] MEDS ORDERED: NURSING VERBAL MED ORDER ONE (14:15)
[2018-01-13 14:56] VITALS: BP 92/55; PULSE 93; TEMP 37.1; O2SAT 98
[2018-01-13 15:55] VITALS: BP 119/67; PULSE 97
[2018-01-13] MEDS: HYDROCHLOROTHIAZIDE 25 MG TAB PO SCH (20:52)
[2018-01-13] MEDS: PANTOprazole SOD 40 MG TAB PO SCH (20:52)
[2018-01-13] MEDS: DOCUSATE SODIUM/SENNA 50/8.6MG TAB PO SCH (20:53)
[2018-01-13] MEDS: INSULIN GLARGINE SOLOSTAR 100 UNITS/ML 3 ML PEN SC SCH (20:56)
[2018-01-13 23:10] VITALS: BP 138/73; PULSE 100; TEMP 37.8; O2SAT 95
[2018-01-13 23:13] VITALS: TEMP 37.4
[2018-01-14 00:11] VITALS: TEMP 37.2
[2018-01-14] MEDS: OXYCODONE HCL IR 5 MG TAB (IMMEDIATE RELEASE) PO PRN ×3 (03:06→12:21)
[2018-01-14 06:52] VITALS: BP 112/70; PULSE 92; TEMP 36.6; O2SAT 96
[2018-01-14] MEDS: LISINOPRIL/HCTZ 20/25MG TAB PO SCH (07:31)
[2018-01-14] MEDS: INSULIN ASPART 100 UNITS/ML 3 ML PEN SC SCH ×2 (07:34→12:00)
--- NOTE | 2018-01-14 07:56 | Anesthesiology Progress Note ---
Anesthesia Post Op Note Date & Time Jan 14, 2018 at 07:54 Vital Signs Vital Signs Past 12 Hours Date Time Temp Pulse Resp B/P (MAP) Pulse Ox O2 Delivery O2 Flow Rate FiO2 01/14/18 06:52 36.6 92 16 112/70 (84) 96 Room Air 01/14/18 00:11 37.2 01/13/18 23:45 Room Air 01/13/18 23:13 37.4 01/13/18 23:10 37.8 100 18 138/73 (94) 95 Room Air Notes Mental Status: alert / awake / arousable, participated in evaluation Pt Amnestic to Procedure: Yes Nausea / Vomiting: adequately controlled Pain: adequately controlled Airway Patency, RR, SpO2: stable & adequate BP & HR: stable & adequate Hydration State: stable & adequate Anesthetic Complications: no major complications apparent
[2018-01-14] MEDS ORDERED: RXC5 PO (09:49)
--- NOTE | 2018-01-14 09:50 | Discharge Instructions ---
Discharge Instructions Date of Service Jan 14, 2018. Admission Reason for Admission: Lumbar Spinal Stenosis Discharge Discharge Diagnosis / Problem: lumbar stenosis Discharge Goals Goal(s): Improve function Activity Recommendations Activity Limitations: per Instructions/Follow-up section . Instructions / Follow-Up Instructions / Follow-Up ACTIVITY RECOMMENDATIONS: SELF CARE INSTRUCTIONS AFTER THORACIC/LUMBAR FUSIONS 1. You may walk to your tolerance. It is good exercise for your legs and back. Expect some back and intermittent leg aches and pains. 2. You may perform "counter-top" level activities (make a sandwich, erika with a project, etc.). 3. No bending or lifting of more than 10 pounds or back twisting of any nature (roll like a log when turning in bed). 4. You may ride in a car for 20-30 minutes at a time. No driving until after your first visit with your doctor. 5. Frequent changes of position and restricting sitting to 30 minutes at a time will help limit the amount of back spasms and stiffness you may experience. 6. You may discontinue the use of ambulatory aids (cane, crutches, etc.) once your strength and confidence allow. 7. You may brazing machine feeder the shower and let water strike your incision when you arrive home at least once daily. Do not take a tub bath, sit in a hot tub or go into a swimming pool until after your first recheck in the office. SPECIAL CARE INSTRUCTIONS: VERY IMPORTANT TO READ AND REVIEW A. Your surgical incision has been closed with a cosmetic suture under the skin that will dissolve in about 6 weeks. In 14 days, you can use a pair of clean scissors and cut the suture that is left outside of the skin at the ends of your incision. 1. The small skin tapes can be removed 7 days after surgery if they have not fallen off by that point. 2. You may keep the wound open to air as much as possible to promote healing after post-op day number 5 unless told otherwise by your doctor. 3. If you think the wound looks like it is becoming infected (redness or worsening drainage) and/or you are experiencing fever, chill or worsening back pain and muscle spasms, contact the office so that we may evaluate you as soon as possible. B. Complications are uncommon, but please contact us if you have any signs or symptoms of: 1. wound infection (fever higher than 102.5 degrees F, redness, separation of wound, drainage, or increasing pain from the incision) 2. blood clots in legs (pain, swelling, redness and warmth in legs) 3. urinary tract infection (fever higher than 102.5 degrees F, burning upon urination or increased frequency of urination) 4. nerve problems (inability to walk on your toes or heels, numbness, loss of bowel or bladder control) 5. any other symptoms that concern you C. Please call the office at if you have any concerns or questions about your operation or recovery. D. No smoking! Smoking drastically decreases the chance of a solid fusion. E. Do not take any anti-inflammatory medications (Indocin, Advil, Motrin, Aspirin, Naprosyn, etc.) as these may inhibit the chance of a solid fusion. Tylenol is okay to take for pain. MANAGING PAIN AFTER SPINAL SURGERY 1. Narcotic medication is intended for short-term use and will be provided for surgical pain. Surgical pain usually lasts for a period of 4-6 weeks. Narcotic medication includes Percocet, Vicodin, Darvocet, Tylenol #3 or Lortab. 2. Longer-term pain is more appropriately treated with non-narcotic medication such as Tylenol ES. 3. Muscle spasm is not appropriately treated with narcotics. Muscle relaxers such as Soma, Flexeril or Skelaxin can be used along with Tylenol ES. 4. Remember that we all live with some "aches and pains". This is not unusual or uncommon after an injury or as we get older. a. Back pain is expected and may include muscle spasms for 4 to 6 weeks after surgery. The pain should gradually improve. If the pain worsens for no apparent reason, please contact the office. b. Intermittent leg pain may also be experienced and should not be concerned about unless it worsens for no apparent reason. If so, please contact the office. 5. We will provide appropriate medication within the normal guidelines of their prescribed use. We will also be very cautious and aware of potential abuse and extended duration of patients' medication needs. a. Pain medications are for your comfort and to assist with sleep and rest so that the tissue can heal. They are not provided in order to return to normal activity and should not be used through the day. To do so or worsening pain at night can result from ongoing tissue damage and development of tolerance to the prescribed medicine. 6. Please allow 2-3 days to process refills. Prescriptions will not be mailed but must be picked up at the office. FOLLOW UP VISIT: Keep your scheduled follow-up appointment. Any questions, please call the office at . Current Hospital Diet Patient's current hospital diet: Diabetes Type 2 Diet Discharge Diet Recommended Diet: Regular Diet Procedures Procedures Performed: 1. Removal of instrumentation L4-5. #2 exploration of fusion L4-5. #3 lumbar decompression bilateral medial facetectomies foraminotomies L3-4. #4 posterior spinal fusion L3-4 per #5 placement posterior instrumentation L3-4. #6 interbody fusion L3-4. #7 placement of titanium cage 11 x 26 mm at L3-4. #8 placement of locally harvested morselized autograft L3-4. #9 placement InFUSE collagen sponge, mass graft and posterior gutters and ostially up in the interbody space. Pending Studies Studies pending at discharge: no Laboratory Results Hemoglobin A1c Test 12/20/17 14:15 Range/Units Estimated Average Glucose 134 mg/dl Hemoglobin A1c 6.3 H 4.5-5.6 % Medical Emergencies . Who to Call and When: Medical Emergencies: If at any time you feel your situation is an emergency, please call 911 immediately. . Non-Emergent Contact Non-Emergency issues call your: Primary Care Provider . "Provider Documentation" section prepared by Yair Gomez. .
[2018-01-14 12:00] VITALS: BP 112/70; PULSE 92; TEMP 36.6; O2SAT 96
--- NOTE | 2018-01-14 12:07 | Discharge Summary ---
Orthopedic Discharge Summary Admission Date/Reason Jan 11, 2018 at 09:30 Lumbar Spinal Stenosis. Discharge Date/Disposition Jan 14, 2018 Home Diagnosis Principal Diagnosis: Lumbar spinal stenosis with neurogenic claudication Admission Physical Exam As per Admitting History & Physical. Hospital Course Patient underwent multilevel lumbar decompression fusion tolerated as well as taken to the orthopedic floor postoperatively. Postop day #1 he was up and amatory progressive postop day #2 pain is improving and controlled. Subsequently on postop day #3 was discharged home. Discharge orders and instructions can be found in the chart for further review. Discharge Instructions Please refer to the electronic Patient Visit Report (Discharge Instructions) for additional information.
== END 2018-01-14 13:00 | disposition home or self-care (01) | DRG 454 ==
LOC: C.ACU 07:45 → C.3E 09:30 → ENRESERV 13:09
PROVIDERS: ADMIT Orthopaedic Surgery Orthopaedic Surgery of the Spine; ATTEND Orthopaedic Surgery Orthopaedic Surgery of the Spine
PROC: 0SP004Z Removal of Internal Fixation Device from Lumbar Vertebral Joint, Open Approach (ICD-10-PCS; principal; 2018-01-11 09:45)
PROC: 0SG0071 Fusion of Lumbar Vertebral Joint with Autologous Tissue Substitute, Posterior Approach, Posterior Column, Open Approach (ICD-10-PCS; principal; 2018-01-11 09:45)
PROC: 0SG00AJ Fusion of Lumbar Vertebral Joint with Interbody Fusion Device, Posterior Approach, Anterior Column, Open Approach (ICD-10-PCS; principal; 2018-01-11 09:45)
PROC: 0ST20ZZ Resection of Lumbar Vertebral Disc, Open Approach (ICD-10-PCS; principal; 2018-01-11 09:45)
DX: M48.062 Spinal stenosis, lumbar region with neurogenic claudication (principal); D62 Acute posthemorrhagic anemia; Q60.0 Renal agenesis, unilateral; I10 Essential (primary) hypertension; E11.9 Type 2 diabetes mellitus without complications; K21.9 Gastro-esophageal reflux disease without esophagitis; E66.9 Obesity, unspecified; Z68.35 Body mass index [BMI] 35.0-35.9, adult; Z98.1 Arthrodesis status; Z96.643 Presence of artificial hip joint, bilateral; Z98.890 Other specified postprocedural states; Z87.891 Personal history of nicotine dependence; Z85.47 Personal history of malignant neoplasm of testis; Z92.21 Personal history of antineoplastic chemotherapy; Z79.4 Long term (current) use of insulin; Z79.899 Other long term (current) drug therapy; Z82.49 Family history of ischemic heart disease and other diseases of the circulatory system

== ENCOUNTER 2019-03-12 12:36 | Inpatient (IN) ==
[2019-03-12] MEDS ORDERED: PROCHLORPERAZINE 2 ML IV ONE (13:20)
[2019-03-12] MEDS ORDERED: DiphenhydrAMINE HCL 50 MG/ML VIAL IV STA (13:20)
[2019-03-12] MEDS ORDERED: ACETAMINOPHEN 500 MG TAB PO STA (13:20)
[2019-03-12] MEDS ORDERED: SODIUM CHLORIDE 0.9% 1000ML 1,000 ML IV ONE ×2 (13:20→13:22)
[2019-03-12 13:32] LABS: Basophils # (auto) 0.01 K/uL (0-0.2); Basophils % (auto) 0.2 %; Hematocrit (blood only) 32.8 % (42-52); Hemoglobin 11.1 g/dL (14.0-18.0); Immature Granulocytes # (auto) 0.04 K/uL (0.00-0.02); Immature Granulocytes % (auto) 0.7 %; Lymphocytes # (auto) 0.55 K/uL (1.2-3.4); Lymphocytes % (auto) 9.2 %; Mean Corpuscular Hgb Conc 33.8 g/dL (32-36); Mean Platelet Volume 10.9 fL (7.4-10.4); Monocytes # (auto) 0.34 K/uL (0.11-0.59); Monocytes % (auto) 5.7 %; Neutrophils # (auto) 5.07 K/uL (1.4-6.5); Neutrophils % (auto) 84.2 %; Platelet Count 162 K/uL (130-400); RDW Coefficient of Variation 14.3 % (11.5-14.5); RDW Standard Deviation 43.4 fL (36.4-46.3); Red Blood Count 3.95 M/uL (4.7-6.1); White Blood Count 6.01 K/uL (4.8-10.8)
--- NOTE | 2019-03-12 13:37 | XRay Report ---
XR chest 1V portable CLINICAL HISTORY: Sepsis condition COMPARISON STUDY: 09/30/2013 FINDINGS: Left perihilar and left basilar infiltrates. Right lung is clear. Pulmonary apices are zeyad r. Diaphragms are smooth. IMPRESSION: Left perihilar and left basilar infiltrate. The above report was generated using voice recognition software. It may contain grammatical, syntax or spelling errors. Electronically signed by: Reza Lozano M.D. 03/12/2019 1:36 PM
[2019-03-12 13:40] LABS: Alanine Aminotransferase 44 U/L (12-78); Albumin Level 3.7 gm/dl (3.4-5.0); Aspartate Aminotransferase 46 U/L (15-37); BUN Creatinine Ratio 14.2 (10-20); Blood Urea Nitrogen 29 mg/dl (7-18); Calcium 9.1 mg/dl (8.5-10.1); Carbon Dioxide 24 mmol/L (21-32); Chloride 94 mmol/L (98-107); Creatinine Clr Calc Pharmacy 45.1 ml/min; Est GFR (African American) 39.7; Est GFR (Non-African American) 34.2; Glucose 123 mg/dl (70-99); Potassium 4.4 mmol/L (3.5-5.1); Sodium 127 mmol/L (136-145)
[2019-03-12 13:45] LABS: Albumin Globulin Ratio 0.7 (0.9-2); Alkaline Phosphatase 63 U/L (45-117); Bilirubin,Total 0.8 mg/dl (0.2-1); Total Protein 8.7 gm/dl (6.4-8.2); Troponin I < 0.015 ng/ml (0-0.045)
[2019-03-12 13:49] LABS: INR 1.2 (0.9-1.1); Partial Thromboplastin Ratio 1.4; Partial Thromboplastin Time 38.7 Seconds (21.0-31.0); Prothrombin Time 11.7 Seconds (9.0-12.0)
--- NOTE | 2019-03-12 14:19 | CT Scan Report ---
CT SCAN OF THE BRAIN WITHOUT IV CONTRAST CLINICAL HISTORY: Left-sided headache. COMPARISON STUDY: No priors. TECHNIQUE: Unenhanced axial CT scan of the brain is performed from the vertex to the skull base. A d ose lowering technique was utilized adhering to the principles of ALARA. CT DOSE: 968.48 mGy.cm FINDINGS: Brain parenchyma: The brain parenchyma is normal in appearance. There is no hemorrhage, mass effect, or evidence of acute territorial ischemia by CT criteria. Silva-white matter differentiation is preser sonya. No extra-axial fluid collection is seen. Ventricles, sulci, cisterns: Normal in configuration. Intracranial vasculature: There is mild atherosclerotic calcification of the cavernous carotid arteri es. Calvarium: Unremarkable. Sinuses and mastoids: The visualized paranasal sinuses are clear. The mastoid air cells are well pneu matized. Orbits: The bony orbits are grossly intact. IMPRESSION: No acute intracranial abnormality. Electronically signed by: Chirag Medina M.D. 03/12/2019 2:17 PM
--- NOTE | 2019-03-12 14:28 | CT Scan Report ---
CT OF THE CERVICAL SPINE CLINICAL HISTORY: Neck pain status post trauma COMPARISON STUDY: No previous studies for comparison. CT DOSE: TECHNIQUE: CT scan of the cervical spine was performed from the skull base to the thoracic inlet. Farrah ges are reviewed in the axial, sagittal, and coronal planes. IV contrast was not administered for thi s examination. A dose lowering technique was utilized adhering to the principles of ALARA. FINDINGS: The visualized portions of the lung apices reveal no evidence of pneumothorax. The prevertebral soft tissues are normal. No fractures or subluxations are visualized. There are mild degenerative changes present. IMPRESSION: No evidence of acute fracture or traumatic subluxation. Electronically signed by: Colin Cool M.D. 03/12/2019 2:27 PM
[2019-03-12 14:36] LABS: Influenza A virus by PCR Neg for Influ A (Neg); Influenza B virus by PCR Neg for Influ B (Neg)
[2019-03-12] MEDS ORDERED: fentaNYL citrate 100 MCG/2 ML VIAL IV STA (15:08)
[2019-03-12] MEDS ORDERED: LIDOCAINE/EPINEPHRINE 1% 20 ML VIAL INFIL ONE (15:22)
[2019-03-12] MEDS ORDERED: METOCLOPRAMIDE HCL INJ 5 MG/ML 2 ML VIAL IV STA (16:44)
[2019-03-12] MEDS ORDERED: DEXAMETHASONE **PF** INJ 10 MG/ML VIAL IV ONE (16:44)
[2019-03-12] MEDS ORDERED: KETOROLAC 30 MG/ML VIAL IV STA (16:44)
--- NOTE | 2019-03-12 18:29 | Fluoroscopy Report ---
FLUOROSCOPICALLY GUIDED LUMBAR PUNCTURE CLINICAL HISTORY: TREVINO, fever, photophobia FLUOROSCOPY TIME: 36 seconds. NUMBER OF FLUOROSCOPIC IMAGES: 2. PROCEDURE: The procedure, risks and benefits were discussed with the patient including the risk of s demetrio headache, bleeding and infection. The patient agreed to the procedure and informed written cons ent was obtained. The procedure was performed by Dr. Orellana following a timeout. The laminectomy b ed at the L4-L5 level was targeted. Skin overlying the space was prepped and draped in sterile fashio n and local anesthesia was achieved with 1% lidocaine. Under intermittent fluoroscopic guidance, a 5 inch 20-gauge spinal needle was directed into the thecal sac with immediate return of clear CSF. 8 cc of CSF was collected in 4 vials and sent to laboratory as ordered. The needle was removed. The patie nt tolerated the procedure well and no immediate complications were evident. IMPRESSION: Successful fluoroscopically guided lumbar puncture with collection of 8 cc of clear CSF w hich was sent to the laboratory as ordered. Electronically signed by: Kennedy Orellana M.D. 03/12/2019 6:28 PM
[2019-03-12 18:42] LABS: Appearance CSF Clear; CSF Count Tube # 4; CSF Xanthrochromic No xanthochromia; Color CSF Colorless
[2019-03-12 18:43] LABS: Red Blood Cell CSF (A) 0 /uL (0-); White Blood Cell CSF (A) 2 /uL (0-5)
[2019-03-12 18:50] LABS: Total Protein CSF 23.6 mg/dl (15-45)
--- NOTE | 2019-03-12 19:02 | Emergency Department Note ---
Entered by Tanya Szymanski acting as a scribe for History of Present Illness General Chief complaint: Head Pain Stated complaint: HEAD PAIN,FEVER 101.8 Time Seen by Provider: 03/12/19 13:03 Source: patient Mode of arrival: ambulatory Limitations: no limitations History of Present Illness Onset (ago): week(s) 1 Location: head Pain Consistency: + other (worsening) Maximum Pain Intensity: 10 Associated symptoms: + cough, + fever/chills (The patient complains of a fever of 101.8 and chills. ), + headaches, + nausea/vomiting (The patinet complains of nausea. The patient denies vomiting. ) and + other (The patient complains of photophobia, neck swelling, left eye pain, left ear pain, left teeth pain, back pain, and body aches. The patient denies urinary symptoms, bowel symptoms, sore throat, and congestion. ) The patient is a 59 white male w/ PMHx type 2 diabetes, gastritis, hypertension, lumbar disc disease, myalgia, pneumonia, obstructive sleep apnea, recurrent acute sinusitis, testicular cancer, lumbar stenosis with neurogenic claudication, hyperlipidemia, GERD, and history of ETOH abuse who presents to the ED w/ CC of worsening headache beginning 1 week ago. The patient was referred by his PCP. The patient states that he fell 4 days ago and landed on his back. He denies hitting his head. The patient reports that he developed a headache 5 days ago. He states that the pain is exacerbated with cough and pressure. The patient complains of photophobia, neck swelling, left eye pain, left ear pain, left teeth pain, cough, nausea, fever of 101.8, back pain, body ache, and chills. The patient denies vomiting, urinary symptoms, bowel symptoms, sore throat, and congestion. He states that he had Tylenol at 0300 and Vicodin at 1400. Home Medications Home Medications Medication Instructions Recorded Confirmed Type albuterol sulfate HFA 90 1 puffs INH Q4H PRN #6.7 gm 03/12/19 03/12/19 Rx mcg/actuation aerosol inhaler fluticasone prop.50 mcg 2 ea INTNAS TID #1 ea 03/12/19 03/12/19 Rx spray,suspen-sod.chloride 0.9% nasal spray kit glipizide 10 mg tablet 10 mg PO BID #180 tab 03/12/19 03/12/19 Rx hydrocodone 5 mg-acetaminophen 325 2 tab PO Q6H PRN #120 tab 03/12/19 03/12/19 Rx mg tablet insulin glargine (U-100) 100 30 units SQ DAILY #15 ml 03/12/19 03/12/19 Rx unit/mL (3 mL) subcutaneous pen liraglutide 0.6 mg/0.1 mL (18 mg/3 0.6 mg SQ DAILY #9 ml 03/12/19 03/12/19 Rx mL) subcutaneous pen injector lisinopril 20 1 tab PO DAILY #90 tab 03/12/19 03/12/19 Rx mg-hydrochlorothiazide 25 mg tablet metformin 1,000 mg tablet 1,000 mg PO BID #180 tab 03/12/19 03/12/19 Rx omeprazole 40 mg capsule,delayed 40 mg PO DAILY #90 cap 03/12/19 03/12/19 Rx release Allergies Allergy/AdvReac Type Severity Reaction Status Date / Time No Known Allergies Allergy Unknown Verified 03/12/19 14:21 Past Med/Surg History Surgical History History of arthroscopy of shoulder (Resolved) History of back surgery (Resolved) History of colonoscopy (Resolved) History of hip replacement (Resolved) History of repair of rotator cuff (Resolved) Family History Mother Myocardial infarction Hypertension Brother Myocardial infarction Father Congestive heart failure Colon cancer Hypertension Unknown Diabetes Social History Preferred Language: Gabonese Communication Ability: Effective Visual Impairment: No Limitations Hearing Ability: Normal marital status: marital status details: Feels Safe at Home: Yes Smoking Status: Never smoker Review of Systems See HPI for pertinent positives & negatives. and A total of 10 systems reviewed and were otherwise negative Physical Exam Vital Signs Vital Signs - 24 hr 03/12/19 12:44 03/12/19 13:23 03/12/19 13:25 Temperature 39.5 C H Temperature Source Oral Sepsis Recent Fever Within 48 Hours Yes Sepsis New/Unexplained Change in Mental Status No Sepsis Action Taken by Nursing No Action Required Pulse Rate 117 H 115 H 113 H Pulse Rate [Finger] Pulse Rate from SpO2 Sensor 115 H 113 H Respiratory Rate 20 23 25 H Respiratory Effort / Characteristics Non-Labored Spontaneous Blood Pressure 149/78 H 160/88 H Blood Pressure [Right Arm] Blood Pressure Mean 101 112 Blood Pressure Mean [Right Arm] Blood Pressure Position Sitting Pulse Oximetry 97 94 96 Oxygen Delivery Method Room Air Room Air Room Air 03/12/19 13:30 03/12/19 13:32 03/12/19 13:40 Temperature Temperature Source Sepsis Recent Fever Within 48 Hours Sepsis New/Unexplained Change in Mental Status Sepsis Action Taken by Nursing Pulse Rate 120 H 109 H Pulse Rate [Finger] Pulse Rate from SpO2 Sensor 120 H 110 H Respiratory Rate 21 27 H Respiratory Effort / Characteristics Blood Pressure 159/76 H Blood Pressure [Right Arm] Blood Pressure Mean 103 Blood Pressure Mean [Right Arm] Blood Pressure Position Pulse Oximetry 96 92 Oxygen Delivery Method Room Air Room Air Room Air 03/12/19 13:50 03/12/19 14:00 03/12/19 14:01 Temperature Temperature Source Sepsis Recent Fever Within 48 Hours Sepsis New/Unexplained Change in Mental Status Sepsis Action Taken by Nursing Pulse Rate 109 H 107 H 107 H Pulse Rate [Finger] Pulse Rate from SpO2 Sensor 109 H 107 H 108 H Respiratory Rate 27 H 25 H 27 H Respiratory Effort / Characteristics Blood Pressure 150/75 H Blood Pressure [Right Arm] Blood Pressure Mean 100 Blood Pressure Mean [Right Arm] Blood Pressure Position Pulse Oximetry 91 91 91 Oxygen Delivery Method Room Air Room Air Room Air 03/12/19 14:18 03/12/19 14:20 03/12/19 14:30 Temperature Temperature Source Sepsis Recent Fever Within 48 Hours Sepsis New/Unexplained Change in Mental Status Sepsis Action Taken by Nursing Pulse Rate 104 H 103 H 101 H Pulse Rate [Finger] Pulse Rate from SpO2 Sensor Respiratory Rate 25 H 22 23 Respiratory Effort / Characteristics Blood Pressure Blood Pressure [Right Arm] Blood Pressure Mean Blood Pressure Mean [Right Arm] Blood Pressure Position Pulse Oximetry Oxygen Delivery Method Room Air Room Air Room Air 03/12/19 14:40 03/12/19 14:50 03/12/19 14:58 Temperature Temperature Source Sepsis Recent Fever Within 48 Hours Sepsis New/Unexplained Change in Mental Status Sepsis Action Taken by Nursing Pulse Rate 98 H 97 H Pulse Rate [Finger] 98 H Pulse Rate from SpO2 Sensor Respiratory Rate 24 20 23 Respiratory Effort / Characteristics Blood Pressure Blood Pressure [Right Arm] 123/78 Blood Pressure Mean Blood Pressure Mean [Right Arm] 93 Blood Pressure Position Pulse Oximetry 96 Oxygen Delivery Method Room Air Room Air Room Air 03/12/19 14:59 03/12/19 15:00 03/12/19 15:01 Temperature Temperature Source Sepsis Recent Fever Within 48 Hours Sepsis New/Unexplained Change in Mental Status Sepsis Action Taken by Nursing Pulse Rate 97 H 95 H 95 H Pulse Rate [Finger] Pulse Rate from SpO2 Sensor 97 H 95 H 95 H Respiratory Rate 25 H 23 23 Respiratory Effort / Characteristics Blood Pressure 123/78 137/70 Blood Pressure [Right Arm] Blood Pressure Mean 93 92 Blood Pressure Mean [Right Arm] Blood Pressure Position Pulse Oximetry 95 95 94 Oxygen Delivery Method Room Air Room Air Room Air 03/12/19 15:10 03/12/19 15:20 03/12/19 15:30 Temperature Temperature Source Sepsis Recent Fever Within 48 Hours Sepsis New/Unexplained Change in Mental Status Sepsis Action Taken by Nursing Pulse Rate 93 H 94 H 94 H Pulse Rate [Finger] 93 H Pulse Rate from SpO2 Sensor 91 H 94 H 94 H Respiratory Rate 22 21 22 Respiratory Effort / Characteristics Blood Pressure 131/74 Blood Pressure [Right Arm] 137/70 Blood Pressure Mean 93 Blood Pressure Mean [Right Arm] 92 Blood Pressure Position Pulse Oximetry 96 95 94 Oxygen Delivery Method Room Air Room Air Room Air 03/12/19 15:31 03/12/19 15:40 03/12/19 15:50 Temperature Temperature Source Sepsis Recent Fever Within 48 Hours Sepsis New/Unexplained Change in Mental Status Sepsis Action Taken by Nursing Pulse Rate 91 H 90 89 Pulse Rate [Finger] Pulse Rate from SpO2 Sensor 91 H 91 H 89 Respiratory Rate 19 17 20 Respiratory Effort / Characteristics Blood Pressure Blood Pressure [Right Arm] Blood Pressure Mean Blood Pressure Mean [Right Arm] Blood Pressure Position Pulse Oximetry 94 93 96 Oxygen Delivery Method Room Air Room Air Room Air 03/12/19 16:00 03/12/19 16:01 03/12/19 16:10 Temperature Temperature Source Sepsis Recent Fever Within 48 Hours Sepsis New/Unexplained Change in Mental Status Sepsis Action Taken by Nursing Pulse Rate 88 89 87 Pulse Rate [Finger] Pulse Rate from SpO2 Sensor 88 89 87 Respiratory Rate 19 20 21 Respiratory Effort / Characteristics Blood Pressure 104/64 Blood Pressure [Right Arm] Blood Pressure Mean 77 Blood Pressure Mean [Right Arm] Blood Pressure Position Pulse Oximetry 97 96 96 Oxygen Delivery Method Room Air Room Air Room Air 03/12/19 16:20 03/12/19 16:30 03/12/19 16:40 Temperature Temperature Source Sepsis Recent Fever Within 48 Hours Sepsis New/Unexplained Change in Mental Status Sepsis Action Taken by Nursing Pulse Rate 91 H 91 H 92 H Pulse Rate [Finger] Pulse Rate from SpO2 Sensor 93 H Respiratory Rate 21 21 22 Respiratory Effort / Characteristics Blood Pressure 126/82 Blood Pressure [Right Arm] Blood Pressure Mean 96 Blood Pressure Mean [Right Arm] Blood Pressure Position Pulse Oximetry 96 Oxygen Delivery Method Room Air Room Air 03/12/19 16:50 03/12/19 17:00 03/12/19 17:01 Temperature Temperature Source Sepsis Recent Fever Within 48 Hours Sepsis New/Unexplained Change in Mental Status Sepsis Action Taken by Nursing Pulse Rate 91 H 88 93 H Pulse Rate [Finger] Pulse Rate from SpO2 Sensor Respiratory Rate 20 21 21 Respiratory Effort / Characteristics Blood Pressure 153/71 H Blood Pressure [Right Arm] Blood Pressure Mean 98 Blood Pressure Mean [Right Arm] Blood Pressure Position Pulse Oximetry Oxygen Delivery Method 03/12/19 17:10 03/12/19 17:20 03/12/19 17:29 Temperature Temperature Source Sepsis Recent Fever Within 48 Hours Sepsis New/Unexplained Change in Mental Status Sepsis Action Taken by Nursing Pulse Rate 90 92 H Pulse Rate [Finger] 98 H Pulse Rate from SpO2 Sensor Respiratory Rate 22 21 20 Respiratory Effort / Characteristics Blood Pressure Blood Pressure [Right Arm] Blood Pressure Mean Blood Pressure Mean [Right Arm] Blood Pressure Position Pulse Oximetry Oxygen Delivery Method Room Air 03/12/19 18:12 Temperature Temperature Source Sepsis Recent Fever Within 48 Hours Sepsis New/Unexplained Change in Mental Status Sepsis Action Taken by Nursing Pulse Rate Pulse Rate [Finger] 97 H Pulse Rate from SpO2 Sensor Respiratory Rate 19 Respiratory Effort / Characteristics Blood Pressure Blood Pressure [Right Arm] 150/73 H Blood Pressure Mean Blood Pressure Mean [Right Arm] 98 Blood Pressure Position Pulse Oximetry 95 Oxygen Delivery Method Room Air GENERAL: Well appearing, well nourished, NAD, non-toxic. EYE EXAM: Normal conjunctiva. PERRL, no anisocoria and EOM's grossly intact w/o pain. EARS: TMs clear, no effusion, good light reflex. OROPHARYNX: Moist mucus membranes. Grossly normal dentition. No exudate, posterior pharynx is clear, no tonsillar/uvular deviation or swelling. No sublingual, submental, or submandibular swelling. NECK: Supple, no nuchal rigidity, no adenopathy, non-tender. no signs of meningismus. FROM. Neck good chin to chest, good neck extension. Mild midline TTP No step offs. LUNGS: Clear to auscultation. Normal chest wall mechanics. HEART: NSR, no MRG. ABDOMEN: Abdomen soft, non-tender, normo-active bowel sounds, no masses, no rebound or guarding. BACK: No CVA TTP. SKIN: No rashes and no bruising. UPPER EXTREMITIES: Upper extremities are grossly normal. LOWER EXTREMITIES: No pitting edema. No calf pain. NEURO EXAM: A&O x3, cranial nerves II-XII grossly intact, normal speech, 5/5 strength throughout, no sensory deficits, good finger to nose, no pronator drift, moves all 4 extremities on command w/o issue. Procedures Lumbar Puncture Time Out Performed: Yes Patient Position: left lateral decubitus Skin Prep: Povidone-Iodine 1% Local Anesthetic: lidocaine 1% and with epi Amount of anesthesia used (mL): 10 Spinal Needle Gauge: 20G Interspace Used: L4-L5 Complications: unable to obtain CSF Course 1309: Past medical records reviewed. The patient was evaluated in room C06. A complete history and physical examination was performed. 1506: The patient does not feel better. We will perform an LP. 1617: I performed an LP at bedside. 1644: The LP was not successful. The patient will be admitted. 1650: I reviewed the patient's case with [facility]. He will evaluate the patient for further management. 1655: I reviewed the patient's case with Endy Orellana - Radiology about a fluoroscopically guided LP. 1735: The patient was brought over for the fluoroscopically guided LP. Consultations Consultation #1: 1650: I reviewed the patient's case with [facility]. He will evaluate the patient for further management. Time: 16:50 Administered Medications Discontinued Medications Acetaminophen (Tylenol) 1,000 mg PO NOW STA Stop: 03/12/19 13:21 Last Admin: 03/12/19 13:28 Dose: 1,000 mg Documented by: [id number] Dexamethasone Sodium Phosphate (Decadron Pf) 10 mg IV NOW ONE Stop: 03/12/19 16:45 Last Admin: 03/12/19 17:26 Dose: 10 mg Documented by: [id number] Diphenhydramine HCl (Benadryl) 50 mg IV NOW STA Stop: 03/12/19 13:21 Last Admin: 03/12/19 13:28 Dose: 50 mg Documented by: [id number] Fentanyl Citrate (Fentanyl Citrate) 75 mcg IV NOW STA Stop: 03/12/19 15:09 Last Admin: 03/12/19 15:28 Dose: 75 mcg Documented by: [id number] Prochlorperazine (Compazine) 2 mls @ 1 mls/min IV ONE ONE Stop: 03/12/19 13:21 Last Admin: 03/12/19 13:28 Dose: 1 mls/min Documented by: [id number] Sodium Chloride (Nss 1000ml) 1,000 mls @ 999 mls/hr IV .Q1H1M ONE Stop: 03/12/19 14:20 Last Infusion: 03/12/19 14:26 Dose: 0 mls/hr Documented by: [id number] Admin: 03/12/19 13:24 Dose: 999 mls/hr Documented by: [id number] Sodium Chloride (Nss 1000ml) 1,000 mls @ 999 mls/hr IV .Q1H1M ONE Stop: 03/12/19 14:22 Last Infusion: 03/12/19 15:07 Dose: 0 mls/hr Documented by: [id number] Admin: 03/12/19 13:50 Dose: 999 mls/hr Documented by: [id number] Ketorolac Tromethamine (Toradol) 30 mg IV NOW STA Stop: 03/12/19 16:45 Last Admin: 03/12/19 17:26 Dose: 30 mg Documented by: [id number] Lidocaine/Epinephrine (Xylocaine/Epinephrine 1%) 20 ml INFIL NOW ONE Stop: 03/12/19 15:23 Last Admin: 03/12/19 15:28 Dose: 20 ml Documented by: [id number] Metoclopramide HCl (Reglan) 10 mg IV NOW STA Stop: 03/12/19 16:45 Last Admin: 03/12/19 17:26 Dose: 10 mg Documented by: [id number] Medical Decision Making Differential Diagnosis Differential diagnoses: Headache, tension headache, cluster headache, migraine, subarachnoid hemorrhage, meningitis, mass, central venous thrombus, concussion, trauma and epidural/subdural hemorrhage. Medical Records Attestation: I reviewed the patient's medical records. Home Medications Current Medication List: was personally reviewed by me Laboratory Data Attestation: I reviewed the patient's lab results. Result diagrams: 03/12/19 12:55 03/12/19 12:55 Lab Results 03/12/19 03/12/19 03/12/19 Range/Units 12:55 12:55 12:55 WBC 6.01 (4.8-10.8) K/uL RBC 3.95 L (4.7-6.1) M/uL Hgb 11.1 L (14.0-18.0) g/dL Hct 32.8 L (42-52) % MCV 83.0 (80-100) fL MCH 28.1 (25-34) pg MCHC 33.8 (32-36) g/dL RDW Std Deviation 43.4 (36.4-46.3) fL RDW Coeff of Eber 14.3 (11.5-14.5) % Plt Count 162 (130-400) K/uL MPV 10.9 H (7.4-10.4) fL Immature Gran % (Auto) 0.7 % Neut % (Auto) 84.2 % Lymph % (Auto) 9.2 % Morrow % (Auto) 5.7 % Eos % (Auto) 0.0 % Baso % (Auto) 0.2 % Immature Gran # (Auto) 0.04 H (0.00-0.02) K/uL Neut # (Auto) 5.07 (1.4-6.5) K/uL Lymph # (Auto) 0.55 L (1.2-3.4) K/uL Morrow # (Auto) 0.34 (0.11-0.59) K/uL Eos # (Auto) 0.00 (0-0.5) K/uL Baso # (Auto) 0.01 (0-0.2) K/uL PT 11.7 (9.0-12.0) Seconds INR 1.2 H (0.9-1.1) APTT 38.7 H (21.0-31.0) Seconds PTT Ratio 1.4 Sodium 127 L (136-145) mmol/L Potassium 4.4 (3.5-5.1) mmol/L Chloride 94 L (98-107) mmol/L Carbon Dioxide 24 (21-32) mmol/L Anion Gap 9.0 (3-11) BUN 29 H (7-18) mg/dl Creatinine 2.06 H (0.6-1.4) mg/dl Est Cr Clr Drug Dosing 45.1 ml/min Est GFR ( Amer) 39.7 Est GFR (Non-Af Amer) 34.2 BUN/Creatinine Ratio 14.2 (10-20) Glucose 123 H (70-99) mg/dl POC Lactic Acid Himanshu (0.90-1.70) mmol/L Lactate (0.4-2.0) mmol/L Calcium 9.1 (8.5-10.1) mg/dl Total Bilirubin 0.8 (0.2-1) mg/dl AST 46 H (15-37) U/L ALT 44 (12-78) U/L Alkaline Phosphatase 63 (45-117) U/L Troponin I < 0.015 (0-0.045) ng/ml Total Protein 8.7 H (6.4-8.2) gm/dl Albumin 3.7 (3.4-5.0) gm/dl Globulin 5.0 H (2.5-4.0) gm/dl Albumin/Globulin Ratio 0.7 L (0.9-2) CSF Appearance CSF Color Xanthrochromic CSF WBC (0-5) /uL CSF RBC (0-) /uL CSF Cell Count Tube # CSF Glucose (40-70) mg/dl CSF Total Protein (15-45) mg/dl Lyme Disease IgM Ab (Negative) Influenza Type A (PCR) (Neg) Influenza Type B (PCR) (Neg) 03/12/19 03/12/19 03/12/19 Range/Units 12:55 13:04 13:50 WBC (4.8-10.8) K/uL RBC (4.7-6.1) M/uL Hgb (14.0-18.0) g/dL Hct (42-52) % MCV (80-100) fL MCH (25-34) pg MCHC (32-36) g/dL RDW Std Deviation (36.4-46.3) fL RDW Coeff of Eber (11.5-14.5) % Plt Count (130-400) K/uL MPV (7.4-10.4) fL Immature Gran % (Auto) % Neut % (Auto) % Lymph % (Auto) % Morrow % (Auto) % Eos % (Auto) % Baso % (Auto) % Immature Gran # (Auto) (0.00-0.02) K/uL Neut # (Auto) (1.4-6.5) K/uL Lymph # (Auto) (1.2-3.4) K/uL Morrow # (Auto) (0.11-0.59) K/uL Eos # (Auto) (0-0.5) K/uL Baso # (Auto) (0-0.2) K/uL PT (9.0-12.0) Seconds INR (0.9-1.1) APTT (21.0-31.0) Seconds PTT Ratio Sodium (136-145) mmol/L Potassium (3.5-5.1) mmol/L Chloride (98-107) mmol/L Carbon Dioxide (21-32) mmol/L Anion Gap (3-11) BUN (7-18) mg/dl Creatinine (0.6-1.4) mg/dl Est Cr Clr Drug Dosing ml/min Est GFR ( Amer) Est GFR (Non-Af Amer) BUN/Creatinine Ratio (10-20) Glucose (70-99) mg/dl POC Lactic Acid Himanshu 1.83 H (0.90-1.70) mmol/L Lactate (0.4-2.0) mmol/L Calcium (8.5-10.1) mg/dl Total Bilirubin (0.2-1) mg/dl AST (15-37) U/L ALT (12-78) U/L Alkaline Phosphatase (45-117) U/L Troponin I Cancelled (0-0.045) ng/ml Total Protein (6.4-8.2) gm/dl Albumin (3.4-5.0) gm/dl Globulin (2.5-4.0) gm/dl Albumin/Globulin Ratio (0.9-2) CSF Appearance CSF Color Xanthrochromic CSF WBC (0-5) /uL CSF RBC (0-) /uL CSF Cell Count Tube # CSF Glucose (40-70) mg/dl CSF Total Protein (15-45) mg/dl Lyme Disease IgM Ab (Negative) Influenza Type A (PCR) Neg for Influ A (Neg) Influenza Type B (PCR) Neg for Influ B (Neg) 03/12/19 03/12/19 03/12/19 Range/Units 14:41 14:41 18:02 WBC (4.8-10.8) K/uL RBC (4.7-6.1) M/uL Hgb (14.0-18.0) g/dL Hct (42-52) % MCV (80-100) fL MCH (25-34) pg MCHC (32-36) g/dL RDW Std Deviation (36.4-46.3) fL RDW Coeff of Eber (11.5-14.5) % Plt Count (130-400) K/uL MPV (7.4-10.4) fL Immature Gran % (Auto) % Neut % (Auto) % Lymph % (Auto) % Morrow % (Auto) % Eos % (Auto) % Baso % (Auto) % Immature Gran # (Auto) (0.00-0.02) K/uL Neut # (Auto) (1.4-6.5) K/uL Lymph # (Auto) (1.2-3.4) K/uL Morrow # (Auto) (0.11-0.59) K/uL Eos # (Auto) (0-0.5) K/uL Baso # (Auto) (0-0.2) K/uL PT (9.0-12.0) Seconds INR (0.9-1.1) APTT (21.0-31.0) Seconds PTT Ratio Sodium (136-145) mmol/L Potassium (3.5-5.1) mmol/L Chloride (98-107) mmol/L Carbon Dioxide (21-32) mmol/L Anion Gap (3-11) BUN (7-18) mg/dl Creatinine (0.6-1.4) mg/dl Est Cr Clr Drug Dosing ml/min Est GFR ( Amer) Est GFR (Non-Af Amer) BUN/Creatinine Ratio (10-20) Glucose (70-99) mg/dl POC Lactic Acid Himanshu (0.90-1.70) mmol/L Lactate 1.4 (0.4-2.0) mmol/L Calcium (8.5-10.1) mg/dl Total Bilirubin (0.2-1) mg/dl AST (15-37) U/L ALT (12-78) U/L Alkaline Phosphatase (45-117) U/L Troponin I (0-0.045) ng/ml Total Protein (6.4-8.2) gm/dl Albumin (3.4-5.0) gm/dl Globulin (2.5-4.0) gm/dl Albumin/Globulin Ratio (0.9-2) CSF Appearance CSF Color Xanthrochromic CSF WBC (0-5) /uL CSF RBC (0-) /uL CSF Cell Count Tube # CSF Glucose 46 (40-70) mg/dl CSF Total Protein 23.6 (15-45) mg/dl Lyme Disease IgM Ab Negative (Negative) Influenza Type A (PCR) (Neg) Influenza Type B (PCR) (Neg) 03/12/19 Range/Units 18:02 WBC (4.8-10.8) K/uL RBC (4.7-6.1) M/uL Hgb (14.0-18.0) g/dL Hct (42-52) % MCV (80-100) fL MCH (25-34) pg MCHC (32-36) g/dL RDW Std Deviation (36.4-46.3) fL RDW Coeff of Eber (11.5-14.5) % Plt Count (130-400) K/uL MPV (7.4-10.4) fL Immature Gran % (Auto) % Neut % (Auto) % Lymph % (Auto) % Morrow % (Auto) % Eos % (Auto) % Baso % (Auto) % Immature Gran # (Auto) (0.00-0.02) K/uL Neut # (Auto) (1.4-6.5) K/uL Lymph # (Auto) (1.2-3.4) K/uL Morrow # (Auto) (0.11-0.59) K/uL Eos # (Auto) (0-0.5) K/uL Baso # (Auto) (0-0.2) K/uL PT (9.0-12.0) Seconds INR (0.9-1.1) APTT (21.0-31.0) Seconds PTT Ratio Sodium (136-145) mmol/L Potassium (3.5-5.1) mmol/L Chloride (98-107) mmol/L Carbon Dioxide (21-32) mmol/L Anion Gap (3-11) BUN (7-18) mg/dl Creatinine (0.6-1.4) mg/dl Est Cr Clr Drug Dosing ml/min Est GFR ( Amer) Est GFR (Non-Af Amer) BUN/Creatinine Ratio (10-20) Glucose (70-99) mg/dl POC Lactic Acid Himanshu (0.90-1.70) mmol/L Lactate (0.4-2.0) mmol/L Calcium (8.5-10.1) mg/dl Total Bilirubin (0.2-1) mg/dl AST (15-37) U/L ALT (12-78) U/L Alkaline Phosphatase (45-117) U/L Troponin I (0-0.045) ng/ml Total Protein (6.4-8.2) gm/dl Albumin (3.4-5.0) gm/dl Globulin (2.5-4.0) gm/dl Albumin/Globulin Ratio (0.9-2) CSF Appearance Clear CSF Color Colorless Xanthrochromic No xanthochromia CSF WBC 2 (0-5) /uL CSF RBC 0 (0-) /uL CSF Cell Count Tube # 4 CSF Glucose (40-70) mg/dl CSF Total Protein (15-45) mg/dl Lyme Disease IgM Ab (Negative) Influenza Type A (PCR) (Neg) Influenza Type B (PCR) (Neg) Imaging Data Radiologist's Impression: Radiology results as stated below per my review and the radiologist's interpretation: CT OF THE CERVICAL SPINE CLINICAL HISTORY: Neck pain status post trauma COMPARISON STUDY: No previous studies for comparison. CT DOSE: TECHNIQUE: CT scan of the cervical spine was performed from the skull base to the thoracic inlet. Images are reviewed in the axial, sagittal, and coronal planes. IV contrast was not administered for this examination. A dose lowering technique was utilized adhering to the principles of ALARA. FINDINGS: The visualized portions of the lung apices reveal no evidence of pneumothorax. The prevertebral soft tissues are normal. No fractures or subluxations are visualized. There are mild degenerative changes present. IMPRESSION: No evidence of acute fracture or traumatic subluxation. Electronically signed by: Colin Cool M.D. 03/12/2019 2:27 PM Dictated: 03/12/19 1418 Transcribed: 03/12/[address] SCAN OF THE BRAIN WITHOUT IV CONTRAST CLINICAL HISTORY: Left-sided headache. COMPARISON STUDY: No priors. TECHNIQUE: Unenhanced axial CT scan of the brain is performed from the vertex to the skull base. A dose lowering technique was utilized adhering to the principles of ALARA. CT DOSE: 968.48 mGy.cm FINDINGS: Brain parenchyma: The brain parenchyma is normal in appearance. There is no hemorrhage, mass effect, or evidence of acute territorial ischemia by CT criteria. Silva-white matter differentiation is preserved. No extra-axial fluid collection is seen. Ventricles, sulci, cisterns: Normal in configuration. Intracranial vasculature: There is mild atherosclerotic calcification of the ca vernous carotid arteries. Calvarium: Unremarkable. Sinuses and mastoids: The visualized paranasal sinuses are clear. The mastoid air cells are well pneumatized. Orbits: The bony orbits are grossly intact. IMPRESSION: No acute intracranial abnormality. Electronically signed by: Chirag Medina M.D. 03/12/2019 2:17 PM Dictated: 03/12/19 1416 Transcribed: 03/12/19 141 XR chest 1V portable CLINICAL HISTORY: Sepsis condition COMPARISON STUDY: 09/30/2013 FINDINGS: Left perihilar and left basilar infiltrates. Right lung is clear. Pulmonary apices are clear. Diaphragms are smooth. IMPRESSION: Left perihilar and left basilar infiltrate. The above report was generated using voice recognition software. It may contain grammatical, syntax or spelling errors. Electronically signed by: Reza Lozano M.D. 03/12/2019 1:36 PM Dictated: 03/12/19 1336 Transcribed: 03/12/19 1336 Blood Pressure Blood Pressure Findings: Elevated blood pressure Blood Pressure Disposition: elevated BP felt to be situational MDM Narrative The patient is a 59 white male w/ PMHx type 2 diabetes, gastritis, hypertension, lumbar disc disease, myalgia, pneumonia, obstructive sleep apnea, recurrent acute sinusitis, testicular cancer, lumbar stenosis with neurogenic claudication, hyperlipidemia, GERD, and history of ETOH abuse who presents to the ED w/ CC of worsening headache beginning 1 week ago. Patient was seen and evaluated the bedside. The patient had been referred from primary care office due to concern of fever and headache. On exam the patient does not necessarily hear meningitic but does have some mild photophobia. The patient does appear to have full range of motion of the neck. Posterior pharynx is clear with no trismus. The patient does complain of diffuse arthralgias. The patient did a blood work completed along with a CT of the head. CT cervical spine was obtained secondary to a recent fall. Patient was also given antipyretics and did have blood cultures drawn. The patient's blood work showed a white count that was normal. The patient does have an associated hyponatremia. The patient's LFTs are not elevated. Ixemo-dn-qyzp lactate was 1.8. Patient flu is negative. Given the hyponatremia Lyme's and Anaplasma are ultrasensitive the patient and family do not endorse any recent tick bites. I did reassess the patient the patient was not feeling any improved with regard to his headache. Given this I thought it best to attempt a lumbar puncture. This was attempted twice in a sterile fashion after obtaining verbal consent. I was unsuccessful this was actually difficult likely secondary to his prior history of back surgery. I did put in a order for LP fluoroscopy. Patient was given an additional headache cocktail and I did discuss the case with the on-call hospitalist stated the patient had deferred antibiotics at this time. There was concern for the possibility of a pneumonia although the patient has not endorsed any cough. Impression & Plan Headache, PNA (pneumonia), Hyponatremia, JANA (acute kidney injury) Discharge Plan Visit Data Chief Complaint: Head Pain Stated Complaint: HEAD PAIN,FEVER 101.8 ED Provider: Steve Jj Discharge Problem: Headache, PNA (pneumonia), Hyponatremia, JANA (acute kidney injury) Patient Disposition: Being Evaluated by Hospitalist Forms Stand Alone Forms: My [facility], Important Visit Information Prescriptions Prescriptions: No Action fluticasone prp-sod.chl,bicarb 50 mcg- 0.9 % kit,spray suspension and spray 2 ea INTNAS TID Qty: 1 RF: 0 glipizide 10 mg tablet 10 mg PO BID Qty: 180 RF: 3 lisinopril-hydrochlorothiazide 20-25 mg tablet 1 tab PO DAILY Qty: 90 RF: 3 hydrocodone-acetaminophen 5-325 mg tablet 2 tab PO Q6H PRN (Reason: pain) Qty: 120 RF: 0 Lantus Solostar U-100 Insulin 100 unit/mL (3 mL) insulin pen 30 units SQ DAILY Qty: 15 RF: 3 metformin 1,000 mg tablet 1,000 mg PO BID Qty: 180 RF: 3 omeprazole 40 mg capsule,delayed release(DR/EC) 40 mg PO DAILY Qty: 90 RF: 3 albuterol sulfate [ProAir HFA] 90 mcg/actuation HFA aerosol inhaler 1 puffs INH Q4H PRN (Reason: shortness of breath or wheezing) Qty: 6.7 RF: 3 Victoza 3-Girish 0.6 mg/0.1 mL (18 mg/3 mL) pen injector 0.6 mg SQ DAILY Qty: 9 RF: 3 Referrals Referrals: Steven Timmons DO [Primary Care Provider] - Discharge Problem: Headache Qualifiers: Headache type: unspecified Headache chronicity pattern: unspecified pattern Intractability: intractable Qualified Code(s): R51 - Headache PNA (pneumonia) Qualifiers: Pneumonia type: due to unspecified organism Laterality: unspecified laterality Lung location: unspecified part of lung Qualified Code(s): J18.9 - Pneumonia, unspecified organism The scribe's documentation has been prepared under my direction and personally reviewed by me in its entirety. I confirm that the note above accurately ref lects all work, treatment, procedures, and medical decision making performed by me.
--- NOTE | 2019-03-12 19:16 | History & Physical Report ---
Date of Service March 12, 2019 Assessment & Plan (1) PNA (pneumonia): 59 y/o M Hx DM II, HTN, chronic back pain, GERD. Presents form his primary MDs office due to concern for meningitis. The pt has had a cough, fever and head and neck pain which have persisted for 4 days. He denies any visual disturbances, nausea, vomiting, weakness or numbness. He has a history of lumbar fusion so that he was sent to IR for an LP. Results are pending at the time of admission. Initial labs are notable for JANA and hyponatremia. A CXR demonstrated L basilar and perihilar infiltrates. 1) PNM - placed on Levaquin. Dounebs, PRN albuterol, 02 protocol. Initial lactic was elevated, maybe due to dehydration rather than sepsis. Repeat pending. 2) TREVINO and fevers - some concern for meningitis - not consistent with my exam - lacking nuchal signs and photophobia. More likely due to dehydradration and PNM. Will follow LP results for decision on additional antibiotics. 3) Hyponatremia - hypovolemic - IVF provided - trend NA. Hold HCTZ. HypoNa workup if there is no short-term improvement. 4) JANA - hold Lisinopril / HCTZ - IVF - recheck BMP AM 5) HTN - PRN Hydralazine 6) DM II - SS Full code - SCDs due to LP Total time for this admit including review of labs, meds, imaging, records - discussion with pt and ER attending - 40 min Present on Admission?: Yes (2) Hyponatremia: (3) Headache: History of Present Illness Chief Complaint: 59 y/o M Hx DM II, HTN, chronic back pain, GERD. Presents form his primary MDs office due to concern for meningitis. The pt has had a cough, fever and head and neck pain which have persisted for 4 days. He denies any visual disturbances, nausea, vomiting, weakness or numbness. He has a history of lumbar fusion so that he was sent to IR for an LP. Results are pending at the time of admission. Initial labs are notable for JANA and hyponatremia. A CXR demonstrated L basilar and perihilar infiltrates. PMH: 1) Testicular CA treated with chemo 2) HTN 3) HLD - not treated 4) DM II 5) Chronic low back pain 6) GERD Surgical: Lumbar decompression and fusion Social: Distant history of smoking and ETOH abuse. Does not drink or smoke currently. Family: Father due to colon CA Primary Care Provider: Steven Timmons DO Allergies Allergy/AdvReac Type Severity Reaction Status Date / Time No Known Allergies Allergy Unknown Verified 03/12/19 14:21 Home Medications Home Medications Medication Instructions Recorded Confirmed Type albuterol sulfate HFA 90 1 puffs INH Q4H PRN #6.7 gm 03/12/19 03/12/19 Rx mcg/actuation aerosol inhaler fluticasone prop.50 mcg 2 ea INTNAS TID #1 ea 03/12/19 03/12/19 Rx spray,suspen-sod.chloride 0.9% nasal spray kit glipizide 10 mg tablet 10 mg PO BID #180 tab 03/12/19 03/12/19 Rx hydrocodone 5 mg-acetaminophen 325 2 tab PO Q6H PRN #120 tab 03/12/19 03/12/19 Rx mg tablet insulin glargine (U-100) 100 30 units SQ DAILY #15 ml 03/12/19 03/12/19 Rx unit/mL (3 mL) subcutaneous pen liraglutide 0.6 mg/0.1 mL (18 mg/3 0.6 mg SQ DAILY #9 ml 03/12/19 03/12/19 Rx mL) subcutaneous pen injector lisinopril 20 1 tab PO DAILY #90 tab 03/12/19 03/12/19 Rx mg-hydrochlorothiazide 25 mg tablet metformin 1,000 mg tablet 1,000 mg PO BID #180 tab 03/12/19 03/12/19 Rx omeprazole 40 mg capsule,delayed 40 mg PO DAILY #90 cap 03/12/19 03/12/19 Rx release Past Med/Surg History Surgical History History of arthroscopy of shoulder (Resolved) History of back surgery (Resolved) History of colonoscopy (Resolved) History of hip replacement (Resolved) History of repair of rotator cuff (Resolved) Family History Mother Myocardial infarction Hypertension Brother Myocardial infarction Father Congestive heart failure Colon cancer Hypertension Unknown Diabetes Social History Preferred Language: Indonesian Communication Ability: Effective Visual Impairment: No Limitations Hearing Ability: Normal marital status: marital status details: Feels Safe at Home: Yes Smoking Status: Never smoker Review of Systems Review of Systems: Gen: Persistent fevers ENT: Denies congestion, throat pain, hearing loss Eyes: Denies acute visual changes CV: Denies CP, palpitations Pulmonary: Persistent cough GI: Denies N/V, diarrhea, constipation Neuro: Denies acute or unilateral weakness, acute gait impairment - TREVINO and neck pain x 3-4 days Endocrine: Denies polydipsia, polyuria Skin: Denies acute rashes or ulcers Results & Data Vital Signs (Past 12 Hours) Vital Signs Temp Pulse Pulse Resp BP BP Pulse Ox 03/12/19 18:12 97 H 19 150/73 H 95 03/12/19 17:29 98 H 20 03/12/19 17:20 92 H 21 03/12/19 17:10 90 22 03/12/19 17:01 93 H 21 03/12/19 17:00 88 21 153/71 H 03/12/19 16:50 91 H 20 03/12/19 16:40 92 H 22 03/12/19 16:30 91 H 21 126/82 03/12/19 16:20 91 H 21 96 03/12/19 16:10 87 21 96 03/12/19 16:01 89 20 96 03/12/19 16:00 88 19 104/64 97 03/12/19 15:50 89 20 96 03/12/19 15:40 90 17 93 03/12/19 15:31 91 H 19 94 03/12/19 15:30 94 H 93 H 22 131/74 137/70 94 03/12/19 15:20 94 H 21 95 03/12/19 15:10 93 H 22 96 03/12/19 15:01 95 H 23 94 03/12/19 15:00 95 H 23 137/70 95 03/12/19 14:59 97 H 25 H 123/78 95 03/12/19 14:58 98 H 23 123/78 96 03/12/19 14:50 97 H 20 03/12/19 14:40 98 H 24 03/12/19 14:30 101 H 23 03/12/19 14:20 103 H 22 03/12/19 14:18 104 H 25 H 03/12/19 14:01 107 H 27 H 91 03/12/19 14:00 107 H 25 H 150/75 H 91 03/12/19 13:50 109 H 27 H 91 03/12/19 13:40 109 H 27 H 92 03/12/19 13:30 120 H 21 159/76 H 96 03/12/19 13:25 113 H 25 H 96 03/12/19 13:23 115 H 23 160/88 H 94 03/12/19 12:44 103.1 F H 117 H 20 149/78 H 97 Diagnostic Findings CXR: L basilar and hilar infiltrates PG Care Time/CCT Total # of Minutes Spent Total Time Spent with Patient: Total time spent is greater than 50% in coordination of care (as documented) at patient's floor/unit and/or counseling patient: (1) PNA (pneumonia) Laterality: unspecified laterality Lung location: unspecified part of lung Pneumonia type: due to unspecified organism Qualified Code(s): J18.9 - Pneumonia, unspecified organism (2) Headache Headache chronicity pattern: unspecified pattern Headache type: unspecified Intractability: intractable Qualified Code(s): R51 - Headache
[2019-03-12] MEDS ORDERED: ALBUTEROL 0.083% NEBU SOLN 3 ML VIAL NEB PRN (20:25)
[2019-03-12] MEDS ORDERED: ALUMINUM/MAGNESIUM SUSP 30 ML UDC PO PRN (20:25)
[2019-03-12] MEDS ORDERED: MAGNESIUM HYDROXIDE SUSP 30 ML UDC PO PRN (20:25)
[2019-03-12] MEDS ORDERED: ONDANSETRON INJ 2 MG/ML 2 ML VIAL IV PRN (20:25)
[2019-03-12] MEDS ORDERED: ZOLPIDEM TARTRATE 5 MG TAB PO PRN (20:25)
[2019-03-12] MEDS ORDERED: POLYETHYLENE (MIRALAX) 17 GM PACK PO PRN (20:25)
[2019-03-12] MEDS: SODIUM CHLORIDE 0.9% 1000ML 1,000 ML IV SCH (20:40)
[2019-03-12] MEDS ORDERED: CARBOHYDRATES FOR HYPOGLYCEMIA PO PRN (20:45)
[2019-03-12] MEDS ORDERED: DEXTROSE 50% 50 ML SYRINGE IV PRN (20:45)
[2019-03-12] MEDS ORDERED: GLUCOSE 40% GEL 15 GM TUBE PO PRN (20:45)
[2019-03-12] MEDS ORDERED: GLUCAGON FOR INJ 1 MG VIAL IM PRN (20:45)
[2019-03-12] MEDS ORDERED: GLUCOSE 10 TABS/TUBE PO PRN (20:45)
[2019-03-12] MEDS ORDERED: LEVOFLOXACIN/D5W 750 MG/150 ML BAG IV SCH (21:00)
[2019-03-12] MEDS: ACETAMINOPHEN 325 MG TAB PO PRN (21:35)
[2019-03-12] MEDS: INSULIN ASPART 100 UNITS/ML 3 ML PEN SC SCH (21:42)
[2019-03-12] MEDS: ALBUT/IPRATROP 3MG/0.5MG NEB 3 ML VIAL NEB SCH (22:58)
[2019-03-12] MEDS: MoRPHine SULFATE 4 MG/ML 1 ML CARP\\VIAL IV PRN (23:53)
[2019-03-13] MEDS: SODIUM CHLORIDE 0.9% 1000ML 1,000 ML IV SCH (01:35)
[2019-03-13] MEDS: ACETAMINOPHEN 325 MG TAB PO PRN (01:58)
[2019-03-13] MEDS: ALBUT/IPRATROP 3MG/0.5MG NEB 3 ML VIAL NEB SCH ×4 (06:53→18:56)
[2019-03-13 07:09] LABS: Basophils # (auto) 0.01 K/uL (0-0.2); Basophils % (auto) 0.4 %; Hematocrit (blood only) 28.6 % (42-52); Hemoglobin 9.9 g/dL (14.0-18.0); Immature Granulocytes # (auto) 0.03 K/uL (0.00-0.02); Immature Granulocytes % (auto) 1.1 %; Lymphocytes % (auto) 17.6 %; Mean Corpuscular Hgb Conc 34.6 g/dL (32-36); Mean Corpuscular Volume 83.1 fL (80-100); Mean Platelet Volume 10.1 fL (7.4-10.4); Monocytes # (auto) 0.09 K/uL (0.11-0.59); Monocytes % (auto) 3.2 %; Neutrophils # (auto) 2.21 K/uL (1.4-6.5); Neutrophils % (auto) 77.7 %; Platelet Count 126 K/uL (130-400); RDW Coefficient of Variation 14.2 % (11.5-14.5); RDW Standard Deviation 43.2 fL (36.4-46.3); Red Blood Count 3.44 M/uL (4.7-6.1); White Blood Count 2.84 K/uL (4.8-10.8)
[2019-03-13 07:30] LABS: Dohle Bodies 1+
[2019-03-13] MEDS: PANTOprazole 40 MG TAB PO SCH (08:47)
[2019-03-13] MEDS: INSULIN ASPART 100 UNITS/ML 3 ML PEN SC SCH ×4 (08:48→21:07)
[2019-03-13] MEDS: INSULIN GLARGINE SOLOSTAR 100 UNITS/ML 3 ML PEN SQ SCH (08:49)
[2019-03-13] MEDS ORDERED: SUMAtriptan succinate 25 MG TAB PO PRN (12:12)
--- NOTE | 2019-03-13 14:08 | Hospitalist Progress Note ---
Date of Service March 13, 2019 Assessment & Plan (1) PNA (pneumonia): CXR showed a pneumonia in the left perihilar and left lower lung. - Continue Levaquin - Continue Dounebs PRN (2) JANA (acute kidney injury): Baseline Cr is ~1.2-1.3. On admission, it was 2.0. - Received IV fluids in the ED - Trend Cr (3) Headache: Some initial concern for meningitis; however, CSF studies were not consistent with infection. - He had had a fall about 3-4 days ago without striking his head directly or any loss of consciousness; however, this may be a mild concussive syndrome. - Trial sumatriptan (4) Hyponatremia: Hypovolemic hyponatremia - IVF provided - Trend Na - Hold HCTZ (5) HTN (hypertension): Holding home lisinopril/HCTZ for dehydration and JANA. - Monitor BP - As of 03/13, still ~130/70 (6) Type 2 diabetes mellitus: A1c was 8.8% in 11/2018. - Hold home oral meds - Sliding scale insulin (7) DVT prophylaxis: SCDs - Low DVT risk per admission calculator Subjective Feeling better today. Headache is somewhat improved with morphine, but still present and still with photophobia. Review of Systems Review of Systems: All systems reviewed & are unremarkable except as noted in HPI & below Physical Exam Constitutional: WD/WN, vitals as above Eyes: EOM intact bilaterally; no conjunctival abnormality ENMT: external ear and nose normal, oropharynx normal Neck: trachea midline, no thyromegaly normal visual inspection Respiratory: no respiratory distress Auscultation: + crackles (Left side) Cardiovascular: RRR, no murmur, no edema Gastrointestinal (Abdomen): Inspection/Auscultation: abdomen normal to inspection; abdomen not distended Musculoskeletal: no cyanosis or clubbing, extremities motor strength 5/5 Skin: no rashes, warm and dry Neurologic: moves all extremities and awake Psychiatric: Orientation: alert, oriented to person and cooperative Results & Data Vital Signs (Past 12 Hours) Vital Signs Temp Pulse Resp BP Pulse Ox 03/13/19 07:13 36.5 C 74 16 133/73 100 03/13/19 06:55 71 18 99 PG Care Time/CCT Total # of Minutes Spent Total Time Spent with Patient: Total time spent is greater than 50% in coordination of care (as documented) at patient's floor/unit and/or counseling patient: (1) PNA (pneumonia) Laterality: unspecified laterality Lung location: unspecified part of lung Pneumonia type: due to unspecified organism Qualified Code(s): J18.9 - Pneumonia, unspecified organism (2) Headache Headache chronicity pattern: unspecified pattern Headache type: unspecified Intractability: intractable Qualified Code(s): R51 - Headache
[2019-03-13] MEDS ORDERED: SUMAtriptan succinate 25 MG TAB PO ONE (14:35)
[2019-03-13] MEDS ORDERED: METOCLOPRAMIDE HCL INJ 5 MG/ML 2 ML VIAL IV ONE (17:14)
[2019-03-13] MEDS ORDERED: KETOROLAC TROMETHAMINE 15 MG/ML VIAL IV ONE (17:14)
[2019-03-13] MEDS ORDERED: NORMOSOL-R 500 ML IV ONE (17:14)
[2019-03-13 21:50] LABS: BUN Creatinine Ratio 20.3 (10-20); Calcium 8.9 mg/dl (8.5-10.1); Est GFR (African American) 44.9; Est GFR (Non-African American) 38.7; Potassium 4.1 mmol/L (3.5-5.1)
[2019-03-13] MEDS: MoRPHine SULFATE 4 MG/ML 1 ML CARP\\VIAL IV PRN (23:52)
[2019-03-14] MEDS: ALBUT/IPRATROP 3MG/0.5MG NEB 3 ML VIAL NEB SCH ×3 (07:04→15:24)
[2019-03-14 07:07] LABS: Eosinophils # (auto) 0.03 K/uL (0-0.5); Eosinophils % (auto) 0.9 %; Hematocrit (blood only) 25.7 % (42-52); Hemoglobin 8.8 g/dL (14.0-18.0); Immature Granulocytes # (auto) 0.04 K/uL (0.00-0.02); Immature Granulocytes % (auto) 1.2 %; Lymphocytes # (auto) 1.02 K/uL (1.2-3.4); Lymphocytes % (auto) 29.7 %; Mean Corpuscular Hgb Conc 34.2 g/dL (32-36); Mean Corpuscular Volume 81.8 fL (80-100); Mean Platelet Volume 9.7 fL (7.4-10.4); Monocytes # (auto) 0.31 K/uL (0.11-0.59); Neutrophils # (auto) 2.03 K/uL (1.4-6.5); Neutrophils % (auto) 59.2 %; Platelet Count 139 K/uL (130-400); RDW Coefficient of Variation 14.4 % (11.5-14.5); RDW Standard Deviation 43.6 fL (36.4-46.3); Red Blood Count 3.14 M/uL (4.7-6.1); White Blood Count 3.43 K/uL (4.8-10.8)
[2019-03-14] MEDS: PANTOprazole 40 MG TAB PO SCH (08:41)
[2019-03-14] MEDS: INSULIN ASPART 100 UNITS/ML 3 ML PEN SC SCH ×2 (08:43→11:59)
[2019-03-14] MEDS: INSULIN GLARGINE SOLOSTAR 100 UNITS/ML 3 ML PEN SQ SCH (08:44)
[2019-03-14] MEDS: MoRPHine SULFATE 4 MG/ML 1 ML CARP\\VIAL IV PRN (08:52)
--- NOTE | 2019-03-14 09:23 | XRay Report ---
XR chest 2V routine CLINICAL HISTORY: Pneumonia, continued leukocytosis COMPARISON STUDY: 03/12/2019 FINDINGS: Slightly progressive left perihilar and left lower lobe infiltrate. Right lung remains zeyad r. Diaphragms are smooth. IMPRESSION: Slightly progressive left perihilar and left lower lobe infiltrate. The above report was generated using voice recognition software. It may contain grammatical, syntax or spelling errors. Electronically signed by: Reza Lozano M.D. 03/14/2019 9:22 AM
[2019-03-14] MEDS ORDERED: ACETAMINOPHEN 500 MG TAB PO STA (09:55)
[2019-03-14] MEDS ORDERED: CYCLOBENZAPRINE HCL 10 MG TAB PO STA (09:55)
[2019-03-14] MEDS ORDERED: methylPREDNISolone 125 MG/2 ML VIAL IV STA (09:55)
[2019-03-14] MEDS ORDERED: NORMOSOL-R 500 ML IV ONE (09:55)
[2019-03-14] MEDS ORDERED: methylPREDNISolone 60 MG in SYRINGE 0 ML IV ONE (10:00)
[2019-03-14 11:32] LABS: Ferritin 838.8 ng/ml (8-388)
[2019-03-14 12:01] LABS: Folate (Folic Acid) 14.61 ng/ml (>5.38)
[2019-03-14] MEDS ORDERED: SUMAtriptan succinate 6 MG/0.5 ML VIAL SQ ONE (14:30)
[2019-03-14] MEDS ORDERED: levoFLOXacin 750 MG TAB PO ONE (15:00)
--- NOTE | 2019-03-14 16:02 | Discharge Summary ---
Date of Service March 14, 2019 Principal Diagnosis 1) Community-acquired pneumonia - Possibly due to atypical bacteria 2) Headache - Likely migraine, possibly due to mild concussion Discharge Exam Constitutional WD/WN, vitals as above Eyes EOM intact bilaterally; no conjunctival abnormality ENMT external ear and nose normal, oropharynx normal Neck trachea midline, no thyromegaly normal visual inspection Respiratory no respiratory distress Auscultation: + crackles (Left side) Cardiovascular RRR, no murmur, no edema Gastrointestinal (Abdomen) Inspection/Auscultation: abdomen normal to inspection; abdomen not distended Musculoskeletal no cyanosis or clubbing, extremities motor strength 5/5 Skin no rashes, warm and dry Neurologic moves all extremities and awake Psychiatric Orientation: alert, oriented to person and cooperative Discharge Data Allergies Allergy/AdvReac Type Severity Reaction Status Date / Time No Known Allergies Allergy Unknown Verified 03/12/19 14:21 Consultations 03/12/19 16:53 ED Decision to Admit Stat Ordered Studies 03/12/19 13:20 CT cervical spine wo con Stat CT head/brain wo con Stat 03/12/19 16:45 FL lumbar puncture diagnostic Routine Hospital Course (1) PNA (pneumonia): CXR on 03/13 showed a pneumonia in the left perihilar and left lower lung. Given the constellation of hyponatremia, thrombocytopenia, and lymphopenia, possibly an atypical bug. - Levaquin course x 6 days (only needed Q48h dosing due to his renal function.) - Dounebs PRN (2) JANA (acute kidney injury): Baseline Cr is ~1.2-1.3. On admission, it was 2.0. - Received IV fluids in the ED - Cr down to 1.85 on discharge; will need repeat BMP in 1 week to see how kidney function is doing. (3) Headache: Some initial concern for meningitis; however, CSF studies were not consistent with infection. CT head on 03/12 was negative for any acute abnormality. - He had had a fall about 3-4 days ago without striking his head directly or any loss of consciousness; however, this may be a mild concussive syndrome. - Trialed sumatriptan, ketorolac, and Reglan with some improvement. - Discussed with Dr. Lezama - Started a 3-day taper of steroids. Some improvement prior to discharge. Will follow up with PCP next week if not resolved. (4) Hyponatremia: Hypovolemic hyponatremia. Resolved. (5) HTN (hypertension): Holding home lisinopril/HCTZ for dehydration and JANA. - Monitor BP - As of 03/13, still ~130/70 (6) Type 2 diabetes mellitus: A1c was 8.8% in 11/2018. - Hold home oral meds - Sliding scale insulin - Will need close checks while on steroids. (7) DVT prophylaxis: SCDs - Low DVT risk per admission calculator Total Time Total Time Spent Total Time Spent (In Minutes): 35 Total Time Includes: Examination of the Patient and Communication With Other Providers Discharge Plan Discharge Items Patient Disposition: Home - Self-Care Reason For Visit: PNM,TREVINO Discharge Diagnosis: Pneumonia, headache Discharge Goals: Decrease discomfort Activity: Resume your previous activity Non-emergency contact: Primary Care Provider Call non-emergency contact if: your symptoms worsen, your pain is not controlled and your temperature is above 100.5 Follow-up/Referrals: Steven Timmons DO [Primary Care Provider] - 03/19/19 9:30 am (follow up appointment with your primary care physician) Diet: Carb Consistent or DM2 Addtl Provider Instructions: Take the one additional dose of antibiotic (levofloxacin) on Sunday morning. Take the prednisone 40mg (2 tabs) on Sunday, then 20mg (1 tab) on Sunday. Take the sumatriptan for migraine-type headaches (aura, nausea, light or sound sensitivity). Take the cyclobenzaprine for muscle soreness. You may take your home Vicodine, [id number]-zqd-[id number] Tylenol, or ibuprofen as well. Try to drink some coffee or use caffeine tablets as well (again, within the bottle recommendations). If your headache does not get better over the weekend, please see Dr. Platt. Prescriptions: New prednisone 20 mg tablet 40 mg PO DAILY 2 Days Qty: 3 RF: 0 cyclobenzaprine 10 mg tablet 10 mg PO BID PRN (Reason: muscle spasm) Qty: 10 RF: 0 sumatriptan succinate 50 mg tablet See Rx Instructions .ROUTE .COMPLEX Qty: 20 RF: 0 levofloxacin 750 mg tablet 750 mg PO DAILY Qty: 1 RF: 0 Continued fluticasone prp-sod.chl,bicarb 50 mcg- 0.9 % kit,spray suspension and spray 2 ea INTNAS TID Qty: 1 RF: 0 glipizide 10 mg tablet 10 mg PO BID Qty: 180 RF: 3 lisinopril-hydrochlorothiazide 20-25 mg tablet 1 tab PO DAILY Qty: 90 RF: 3 hydrocodone-acetaminophen 5-325 mg tablet 2 tab PO Q6H PRN (Reason: pain) Qty: 120 RF: 0 Lantus Solostar U-100 Insulin 100 unit/mL (3 mL) insulin pen 30 units SQ DAILY Qty: 15 RF: 3 metformin 1,000 mg tablet 1,000 mg PO BID Qty: 180 RF: 3 omeprazole 40 mg capsule,delayed release(DR/EC) 40 mg PO DAILY Qty: 90 RF: 3 albuterol sulfate [ProAir HFA] 90 mcg/actuation HFA aerosol inhaler 1 puffs INH Q4H PRN (Reason: shortness of breath or wheezing) Qty: 6.7 RF: 3 Victoza 3-Girish 0.6 mg/0.1 mL (18 mg/3 mL) pen injector 0.6 mg SQ DAILY Qty: 9 RF: 3 Stand-Alone Forms: [facility] Discharge Orders: Discharge Order (Routine); Ordered 03/14/19 Ordered By: Samir Floyd Admission Data Admit Date/Time: 03/12/19 18:58 Attending Provider: Samir Floyd Admit Provider: Teja Srinivasan Primary Care Provider: Steven Timmons Other Providers: Samir Floyd Service: Medical Other Interventions: Discharge Summary Assessment (RN) Last Done: 03/14/19 15:45
[2019-03-19 10:11] LABS: Lyme IgG CSF NO BANDS DETECTED; Lyme IgM CSF NO BANDS DETECTED
== END 2019-03-14 16:44 | disposition home or self-care (01) | DRG 194 ==
LOC: ED 12:36 → SUATTDRO 18:58 → 2N 18:58